=== PATIENT | female | born 1995 | race Caucasian/White ===

== ENCOUNTER → 2021-10-30 07:46 | Outpatient (CLI) | payer MEDICAID, SELFPAY ==
[2021-10-30 08:05] LABS: Basophils % 0.2 % (0.1-2.0); Eosinophils # 0.1 K/mm3 (0.0-0.4); Eosinophils % 0.7 % (0.1-12.0); Hemoglobin 12.2 g/dL (12.2-16.2); Lymphocytes # 1.3 K/mm3 (0.7-4.5); Mean Corpuscular Hemoglobin 29.3 pg (27.0-31.2); Mean Corpuscular Volume 86.1 fl (81-99); Monocytes # 0.3 K/mm3 (0.1-1.0); Monocytes % 3.3 % (1.7-9.3); Neutrophils # 7.1 K/mm3 (1.8-7.8); Neutrophils % 80.9 % (37.0-80.0); Platelet Count 216 K/mm3 (142-424); Red Blood Count 4.18 M/mm3 (4.20-5.40); Red Cell Distribution Width 13.2 % (11.5-17.5); White Blood Count 8.7 K/mm3 (4.8-10.8)
[2021-10-30 08:28] LABS: Glucose,Fasting 89 mg/dl (74-100)
[2021-10-30 10:10] LABS: Glucose 1 Hour 83 mg/dL (74-100)
== END ==
PROVIDERS: PCP Emergency Medicine; Visit Provider Obstetrics & Gynecology
DX: Z34.90 Encounter for supervision of normal pregnancy, unspecified, unspecified trimester (principal)
CPT/HCPCS: 36415; 82951; 85025

== ENCOUNTER → 2021-12-16 13:13 | Outpatient (CLI) | payer MEDICAID, SELFPAY ==
--- NOTE | 2021-12-16 13:14 | US_ITS ---
FINAL REPORT CLINICAL HISTORY: growth and David; obesity; patient transferred care, no prior ultrasound at this facility FINDINGS: There is a single live intrauterine gestation. Presentation is cephalic. Placenta is posterior, grade 2. The cervix is measures 4.6 cm which is normal. movement is seen. Heart rate is 142 beats per minute. AMNIOTIC FLUID: Appropriate amount. DAVID: 15.7 cm which is normal. MEASUREMENTS: ULTRASOUND AGE: 35 weeks 1 days. GESTATION AGE: 34 weeks 6 days. ESTIMATED WEIGHT: 2565 g GROWTH PERCENTILE: 50% BPD: 8.7 cm corresponding with 35 weeks 1 day. OFD: 11 cm corresponding with 35 weeks 3 days. HC: 31.1 cm corresponding with 34 weeks 6 days. AC: 31.1 cm corresponding with 35 weeks 1 days. FL: 6.8 cm corresponding with 35 weeks 1 days. HC/AC: 1.00 CI: 79% FL/BPD: 79% FL/AC: 22% IMPRESSION: Single living IUP with an ultrasound age of 35 weeks 1 days. DAVID of 15.7 cm Reviewed, Interpreted and Dictated by Luis Manuel Fischer III, MD Transcribed by Shante Pena Authenticated by Luis Manuel Fischer III, MD on 12/16/2021 03:07:18 PM [facility]
== END ==
PROVIDERS: PCP Emergency Medicine; Visit Provider Obstetrics & Gynecology
DX: O36.60X0 Maternal care for excessive fetal growth, unspecified trimester, not applicable or unspecified (principal); Z34.90 Encounter for supervision of normal pregnancy, unspecified, unspecified trimester
CPT/HCPCS: 76816

== ENCOUNTER 2022-01-10 09:49 | Inpatient (IN) | payer MEDICAID, SELFPAY ==
--- NOTE | 2022-01-10 09:24 | HMH.HP ---
*Admission Date: 01/10/22 *Chief complaint: contractions *History of present illness: 26 yo @ 38 10/21 GURPREET 01/22/22, dating by LMP = 11 week ultrasound Late transfer to [facility] at 28 weeks from [facility] has been uncomplicated with appropriate care Contractions began this am around 1:30 No leakage of fluid or vaginal bleeding Normal movement Cervix 7cm dilated on initial exam and she was admitted for active labor status reassuring on NST [facility] History I have reviewed the patient's past medical history: Yes *Have you ever received a pneumonia vaccine?: No *Have you received a flu vaccine this season?: Yes Other Surgeries: Yes: No Previous Surgery, Other. No: Amputation: No Fractures: No - *Social History Smoking Status: Never smoker Alcohol Intake: current Alcohol Intake Frequency:: holidays/special occasions only Substance Use Type: denies use *Occupational Status:: employed Housing: house Household Members: family *Travel in the last 8 weeks: None Family Hx:: No significant family history Para: 3 Review of Systems - Review of Systems Review of systems:: pertinent systems reviewed and negative unless documented below - *Genitourinary Reports other (+ contractions), Denies abnormal vaginal bleeding Meds Home Medications Medication Instructions Recorded Confirmed Type vit no.95-ferrous 1 tab PO DAILY 10/29/21 01/10/22 History fumarate 28 mg-folic acid 800 mcg tablet Omeprazole 20 mg PO DAILY 01/10/22 01/10/22 History Allergies Allergy/AdvReac Type Severity Reaction Status Date / Time No Known Allergies Allergy Verified 01/07/22 08:42 Exam Vital signs and Labs for Last 24 Hours: Laboratory Results - last 24 hr 01/10/22 09:44: SARS-CoV-2 (PCR) Not detected, Influenza A Untype (PCR) Not detected, Influenza Type B (PCR) Not detected 01/10/22 09:45: Urine Color Yellow, Urine Appearance Sl cloudy, Urine pH 7.0, Ur Specific [place] 1.015, Urine Protein Negative, Urine Glucose (UA) Negative, Urine Ketones Negative, Urine Blood Negative, Urine Nitrate Negative, Urine Bilirubin Negative, Urine Urobilinogen 0.2, Ur Leukocyte Esterase 3+ A, Urine WBC 20-50, Ur Squamous Epith Cells 10-20, Urine Bacteria 2+, Urine Mucus 1+ 01/10/22 09:45: Urine Opiates Screen Negative, Urine Methadone Screen Negative, Ur Barbituates Screen Negative, Ur Phencyclidine Scrn Negative, Ur Amphetamines Screen Negative, U Benzodiazepines Scrn Negative, Urine Cocaine Screen Negative, U Marijuana (THC) Screen Negative 01/10/22 09:50: Blood Type A Positive, Antibody Screen Negative 01/10/22 09:50: WBC 10.3, RBC 4.60, Hgb 13.1, Hct 38.8, MCV 84.3, MCH 28.4, MCHC 33.7, RDW 14.5, Plt Count 241, MPV 9.2, Neut % (Auto) 78.6, Lymph % (Auto) 15.9, [place] % (Auto) 3.7, Eos % (Auto) 1.2, Baso % (Auto) 0.7, Neut # (Auto) 8.1 H, Lymph # (Auto) 1.6, [place] # (Auto) 0.4, Eos # (Auto) 0.1, Baso # (Auto) 0.1 I & O for Last 24 hours: Intake & Output 01/08/22 01/09/22 01/10/22 01/11/22 11:59 11:59 11:59 11:59 Weight 263 lb - Constitutional no acute distress - *Routine HEENT Exam Head: Present: normocephalic Eye: Absent: conjunctival icterus ENT: Present: mucous membranes moist - *Routine Neck Exam Present: supple. Absent: lymphadenopathy - *Routine Respiratory Exam Present: CTA bilaterally - *Routine Cardiovascular Exam Present: RRR - *Routine Abdominal Exam Present: soft, normoactive bowel sounds. Absent: tenderness - *Routine Rectal Exam Rectal:: deferred - *Routine Genitalia Exam Genitalia:: normal female Comment:: Cervix /-1 AROM clear fluid; IUPC and FSE placed without difficulty or complication - *Routine Extremities Exam Absent: cyanosis, clubbing, edema - *Routine Skin Exam Present: warm. Absent: rash - *Routine Neurological Exam Present: alert, oriented X3 Assessment and Plan (1) 38 weeks gestation of Status: Acute Category: Medica
[2022-01-10 09:41] VITALS: BMI 46.5
[2022-01-10 09:51] VITALS: BMI 46.5
[2022-01-10 10:28] LABS: Microscopic, Urine URINE MICROSCOPIC (MICROSCOPIC)
[2022-01-10 10:28] LABS: Basophils # 0.1 K/mm3 (0-0.2); Basophils % 0.7 % (0.1-2.0); Eosinophils # 0.1 K/mm3 (0.0-0.4); Eosinophils % 1.2 % (0.1-12.0); Hematocrit 38.8 % (37.0-47.0); Hemoglobin 13.1 g/dL (12.2-16.2); Lymphocytes # 1.6 K/mm3 (0.7-4.5); Lymphocytes % 15.9 % (10-50); Mean Corpuscular HGB Conc 33.7 g/dL (31.8-35.4); Mean Corpuscular Hemoglobin 28.4 pg (27.0-31.2); Mean Corpuscular Volume 84.3 fl (81-99); Mean Platelet Volume 9.2 fl (7.4-10.4); Monocytes # 0.4 K/mm3 (0.1-1.0); Monocytes % 3.7 % (1.7-9.3); Neutrophils # 8.1 K/mm3 (1.8-7.8); Neutrophils % 78.6 % (37.0-80.0); Platelet Count 241 K/mm3 (142-424); Red Cell Distribution Width 14.5 % (11.5-17.5); White Blood Count 10.3 K/mm3 (4.8-10.8)
[2022-01-10 10:28] LABS: Coronavirus 19, PCR Not Detected (NotDetected); Influenza A, PCR Not Detected (NotDetected); Influenza B, PCR Not Detected (NotDetected)
[2022-01-10 10:31] LABS: Appearance,Urine SL CLOUDY (Clear); Bilirubin,Urine Negative (Negative); Blood, Urine Negative (Negative); Color,Urine YELLOW (Yellow); Glucose,Urine (UA) Negative (Negative); Ketones,Urine Negative (Negative); Leukocyte Esterase,Urine 3+ (Negative); Nitrate,Urine Negative (Negative); Protein,Urine Negative (Negative); Specific Gravity, Urine 1.015 (1.005-1.030); Urobilinogen,Urine 0.2 EU/dl (0.2)
[2022-01-10 10:42] LABS: Bacteria,Urine 2+ /lpf; WBC,Urine 20-50 #/hpf (0-3)
[2022-01-10 10:43] LABS: Mucus,Urine 1+ /lpf
[2022-01-10 10:45] LABS: Barbiturates Screen,Urine Negative ng/ml (<200)
[2022-01-10 10:46] LABS: Benzodiazepines Screen,Urine Negative ng/ml (<200)
[2022-01-10 10:47] LABS: Amphetamine/Metha Screen,Urine Negative ng/ml (<1000); Methadone Screen,Urine Negative ng/ml (<300)
[2022-01-10 10:48] LABS: Cannabinoid Screen,Urine Negative ng/ml (<50)
[2022-01-10 10:49] LABS: Cocaine Screen,Urine Negative ng/ml (<300); Opiate Screen,Urine Negative ng/ml (<300)
[2022-01-10 10:50] LABS: Phencyclidine Screen,Urine Negative ng/ml (<25)
--- NOTE | 2022-01-10 14:43 | HMH.DN ---
- Delivery Note Delivery Date:: 01/10/22 Delivery Time:: 11:25 Anesthesia Type: None Was labor medically induced?: No Gestational age (weeks): 38 delivered prior to 39 weeks?: Yes Justification for early elective delivery:: Active Labor Infant Gender: Female at 1 minute: 7 at 5 minutes: 9 Delivery Procedure:: Spontaneous vaginal delivery of vigorous live born female infant over intact perineum. Delivery uncomplicated Nuchal cord x 1 reduced on perineum No shoulder dystocia with delivery Infant placed on maternal abdomen after delivery, with standard nursing assessment performed Infant Apgars: 7 & 9 Placenta spontaneously expressed and examined; noted to be complete/intact. Vulva, vagina, and cervix inspected; no lacerations present EBL: 300 cc All sponge/needle/instrument counts correct at conclusion of procedure Mother and stable to recovery
[2022-01-11 08:07] LABS: Hemoglobin 11.3 g/dL (12.2-16.2)
--- NOTE | 2022-01-11 08:25 | HMH.PROBDL ---
Delivery date: 01/10/22 Events: Labor Augmentation Induction method: AROM Anesthesia type: None
--- NOTE | 2022-01-11 08:28 | P.PN_ITS ---
Internal Medicine - PN: Subj *Date: 01/11/22 *Time: 08:28 Interval history: PPD # 1 Patient resting comfortably in bed. She is bottle feeding. No complaints or concerns. Light lochia. Voiding without difficulty. + Flatus and + BM. Denies chest pain, shortness of breath, fever/chills, headaches and vision changes. No lower extremity swelling. Exam Vital signs and Labs for Last 24 Hours: Laboratory Results - last 24 hr 01/10/22 09:44: SARS-CoV-2 (PCR) Not detected, Influenza A Untype (PCR) Not detected, Influenza Type B (PCR) Not detected 01/10/22 09:45: Urine Color Yellow, Urine Appearance Sl cloudy, Urine pH 7.0, Ur Specific [place] 1.015, Urine Protein Negative, Urine Glucose (UA) Negative, Urine Ketones Negative, Urine Blood Negative, Urine Nitrate Negative, Urine Bilirubin Negative, Urine Urobilinogen 0.2, Ur Leukocyte Esterase 3+ A, Urine WBC 20-50, Ur Squamous Epith Cells 10-20, Urine Bacteria 2+, Urine Mucus 1+ 01/10/22 09:45: Urine Opiates Screen Negative, Urine Methadone Screen Negative, Ur Barbituates Screen Negative, Ur Phencyclidine Scrn Negative, Ur Amphetamines Screen Negative, U Benzodiazepines Scrn Negative, Urine Cocaine Screen Negative, U Marijuana (THC) Screen Negative 01/10/22 09:50: Blood Type A Positive, Antibody Screen Negative 01/10/22 09:50: WBC 10.3, RBC 4.60, Hgb 13.1, Hct 38.8, MCV 84.3, MCH 28.4, MCHC 33.7, RDW 14.5, Plt Count 241, MPV 9.2, Neut % (Auto) 78.6, Lymph % (Auto) 15.9, [place] % (Auto) 3.7, Eos % (Auto) 1.2, Baso % (Auto) 0.7, Neut # (Auto) 8.1 H, Lymph # (Auto) 1.6, [place] # (Auto) 0.4, Eos # (Auto) 0.1, Baso # (Auto) 0.1 01/11/22 06:48: Hgb 11.3 L D, Hct 34.0 L 01/11/22 - BP 117/56, HR 76, R 18, O2 sat 98 %, T 98.0 I & O for Last 24 hours: Intake & Output 01/08/22 01/09/22 01/10/22 01/11/22 23:59 23:59 23:59 23:59 Weight 263 lb - Constitutional no acute distress - *Routine HEENT Exam Head: Present: normocephalic Eye: Present: EOMI ENT: Present: mucous membranes moist - *Routine Respiratory Exam Present: CTA bilaterally - *Routine Cardiovascular Exam Present: RRR - *Routine Abdominal Exam Present: soft, normoactive bowel sounds. Absent: tenderness Comments: Fundus firm and below umbilicus - *Routine Extremities Exam Present: full ROM. Absent: cyanosis, clubbing, edema Assessment and Plan (1) 38 weeks gestation of Status: Acute Category: Medical Code(s): Z3A.38 - 38 weeks gestation of (2) Active labor at term Status: Acute Category: Medical (3) anemia Problem details: Acute blood loss, asymptomatic 01/11/22 - Hgb 11.3, Hct 34.0 (01/10/22 - Hgb 13.1, Hct 38.8) Status: Acute Category: Medical Code(s): O90.81 - Anemia of the puerperium (4) History of depression Status: Acute Category: Medical Code(s): Z87.59 - Personal history of other complications of , childbirth and the puerperium; Z86.59 - Personal history of other mental and behavioral disorders - Assessment and plan all Dx Assessment and Plan for all problems:: Continue routine care Encouraged increased ambulation Plan d/c home today Discussed discharge instructions Follow-up with Dr. Ramirez in 6 weeks or sooner if needed
--- NOTE | 2022-01-11 08:28 | HMH.PHAINT ---
MEDICATION RECONCILIATION COMPLETED ON PATIENT USING EXTERNAL FILL HISTORY FROM PHARMACY. -JAYCE SANTIAGO, JOHND
--- NOTE | 2022-01-11 09:23 | HMH.OBDCSM ---
General - General Admission date:: 01/10/22 Discharge date: 01/11/22 HPI - History of Present Illness History of present illness: Ms Mikaela Xiao is a 26 yo at 38 2/7 weeks, by 11 week ultrasound, who presented to [facility] with complaint of regular, painful contractions. On admission cervix was 7 cm dilated. Hospital Course Hospital Course: Patient was admitted for active labor. She had a spontaneous vaginal delivery with no lacerations. PPD # 1 she was feeling well. Bottle feeding. Light lochia. Voiding without difficulty. Passing flatus. She had a BM. She denies headaches, dizziness, chest pain, shortness of breath, fever and chills. Vital signs were stable. Uterine fundus was firm and below umbilicus. Heart was regular rate and rhythm. Lungs were clear to auscultation. No lower extremity swelling and no calf tenderness. Normal hospital course. Rhogam Administration: Not Indicated Objective Vital signs: BP 117/56 HR 76 R 18 T 98.0 O2 sat 98% no acute distress - *Routine HEENT Exam Head: Present: normocephalic Eye: Absent: conjunctivae pink ENT: Present: mucous membranes moist - *Routine Respiratory Exam Present: CTA bilaterally - *Routine Cardiovascular Exam Present: RRR - *Routine Abdominal Exam Present: soft, normoactive bowel sounds. Absent: tenderness, distended Comments: Uterine fundus firm and below umbilicus - *Routine Extremities Exam Absent: cyanosis, edema, calf tenderness - *Routine Neurological Exam Present: alert, oriented X3 Results Labs on day of discharge: Labs from last 24 hours 01/11/22 01/10/22 01/10/22 06:48 09:50 09:50 WBC 10.3 RBC 4.60 Hgb 11.3 L D 13.1 Hct 34.0 L 38.8 MCV 84.3 MCH 28.4 MCHC 33.7 RDW 14.5 Plt Count 241 MPV 9.2 Neut % (Auto) 78.6 Lymph % (Auto) 15.9 [place] % (Auto) 3.7 Eos % (Auto) 1.2 Baso % (Auto) 0.7 Neut # (Auto) 8.1 H Lymph # (Auto) 1.6 [place] # (Auto) 0.4 Eos # (Auto) 0.1 Baso # (Auto) 0.1 Urine Color Urine Appearance Urine pH Ur Specific [place] Urine Protein Urine Glucose (UA) Urine Ketones Urine Blood Urine Nitrate Urine Bilirubin Urine Urobilinogen Ur Leukocyte Esterase Urine WBC Ur Squamous Epith Cells Urine Bacteria Urine Mucus Urine Opiates Screen Urine Methadone Screen Ur Barbituates Screen Ur Phencyclidine Scrn Ur Amphetamines Screen U Benzodiazepines Scrn Urine Cocaine Screen U Marijuana (THC) Screen SARS-CoV-2 (PCR) Influenza A Untype (PCR) Influenza Type B (PCR) Blood Type A Positive Antibody Screen Negative 01/10/22 01/10/22 01/10/22 09:45 09:45 09:44 WBC RBC Hgb Hct MCV MCH MCHC RDW Plt Count MPV Neut % (Auto) Lymph % (Auto) [place] % (Auto) Eos % (Auto) Baso % (Auto) Neut # (Auto) Lymph # (Auto) [place] # (Auto) Eos # (Auto) Baso # (Auto) Urine Color Yellow Urine Appearance Sl cloudy Urine pH 7.0 Ur Specific [place] 1.015 Urine Protein Negative Urine Glucose (UA) Negative Urine Ketones Negative Urine Blood Negative Urine Nitrate Negative Urine Bilirubin Negative Urine Urobilinogen 0.2 Ur Leukocyte Esterase 3+ A Urine WBC 20-50 Ur Squamous Epith Cells 10-20 Urine Bacteria 2+ Urine Mucus 1+ Urine Opiates Screen Negative Urine Methadone Screen Negative Ur Barbituates Screen Negative Ur Phencyclidine Scrn Negative Ur Amphetamines Screen Negative U Benzodiazepines Scrn Negative Urine Cocaine Screen Negative U Marijuana (THC) Screen Negative SARS-CoV-2 (PCR) Not detected Influenza A Untype (PCR) Not detected Influenza Type B (PCR) Not detected Blood Type Antibody Screen DS: Diagnosis - Discharge Diagnosis (1) 38 weeks gestation of Status: Acute (2) Active
== END 2022-01-11 16:44 | disposition home or self-care (01) | DRG 807 ==
LOC: OBOUT 09:49 → OB 09:49
PROVIDERS: Admitting Provider Obstetrics & Gynecology; PCP Family Medicine; Visit Provider Obstetrics & Gynecology
DX: O69.81X0 Labor and delivery complicated by cord around neck, without compression, not applicable or unspecified (principal); Z37.0 Single live birth; Z3A.38 38 weeks gestation of pregnancy; O90.81 Anemia of the puerperium; D64.9 Anemia, unspecified
CPT/HCPCS: 59409; 36415; 59025; 80305; 81001; 85014; 85018; 85025; 86850; 87086; 87088; 87186; C9803; J0595; U0003; U0005

== ENCOUNTER → 2022-01-10 16:41 | Outpatient (CLI) | payer MEDICAID, SELFPAY | PROVIDERS: PCP Obstetrics & Gynecology; Visit Provider Obstetrics & Gynecology | DX: Z34.90 Encounter for supervision of normal pregnancy, unspecified, unspecified trimester (principal) | CPT/HCPCS: 86403 ==

== ENCOUNTER → 2022-02-25 09:20 | Outpatient (CLI) | payer MEDICAID, SELFPAY ==
[2022-02-25 09:51] LABS: Basophils % 0.6 % (0.1-2.0); Eosinophils # 0.1 K/mm3 (0.0-0.4); Eosinophils % 1.6 % (0.1-12.0); Hematocrit 40.4 % (37.0-47.0); Hemoglobin 13.7 g/dL (12.2-16.2); Lymphocytes # 1.1 K/mm3 (0.7-4.5); Lymphocytes % 30.4 % (10-50); Mean Corpuscular Hemoglobin 28.6 pg (27.0-31.2); Mean Corpuscular Volume 84.1 fl (81-99); Mean Platelet Volume 9.6 fl (7.4-10.4); Monocytes # 0.2 K/mm3 (0.1-1.0); Monocytes % 5.7 % (1.7-9.3); Neutrophils # 2.2 K/mm3 (1.8-7.8); Neutrophils % 61.8 % (37.0-80.0); Platelet Count 221 K/mm3 (142-424); Red Cell Distribution Width 14.3 % (11.5-17.5); White Blood Count 3.6 K/mm3 (4.8-10.8)
[2022-02-25 10:08] LABS: Chloride 107 mmol/L (98-107); Potassium 4.1 mmoL/L (3.5-5.1); Sodium 139 mmol/L (136-145)
[2022-02-25 10:10] LABS: Blood Urea Nitrogen 13 mg/dl (7-17)
[2022-02-25 10:11] LABS: Alanine Aminotransferase 22 U/L (12-78); Albumin Level 4.2 g/dl (3.5-5.0); Albumin/Globulin Ratio 1.7 (1.1-1.8); Alkaline Phosphatase 81 U/L (38-126); Anion Gap 11.1 mEq/L (5-15); Aspartate Amino Transferase 27 U/L (14-36); Bilirubin,Total 0.6 mg/dl (0.2-1.3); Calcium 9.2 mg/dl (8.4-10.2); Carbon Dioxide 25 mmol/L (22.0-30.0); Estimated Glomerular Filt Rate 101 ml/min (>60); GFR (African American) 122 ML/MIN (>60); Globulin 2.5 g/dL (1.3-3.2); Glucose 94 mg/dl (74-100); Total Protein,Serum 6.7 g/dl (6.3-8.2)
[2022-02-25 10:22] LABS: Barbiturates Screen,Urine Negative ng/ml (<200); Benzodiazepines Screen,Urine Negative ng/ml (<200)
[2022-02-25 10:23] LABS: Amphetamine/Metha Screen,Urine Negative ng/ml (<1000)
[2022-02-25 10:24] LABS: Cannabinoid Screen,Urine Negative ng/ml (<50); Cocaine Screen,Urine Negative ng/ml (<300)
[2022-02-25 10:25] LABS: Methadone Screen,Urine Negative ng/ml (<300)
[2022-02-25 10:26] LABS: Opiate Screen,Urine Negative ng/ml (<300)
[2022-02-25 10:27] LABS: Phencyclidine Screen,Urine Negative ng/ml (<25)
[2022-02-25 10:28] LABS: HCG,Quantitative < 2 mIU/ml (0-5.42)
== END ==
PROVIDERS: PCP Nurse Practitioner Family; Visit Provider Obstetrics & Gynecology
DX: U07.1 COVID-19 (principal); Z30.2 Encounter for sterilization
CPT/HCPCS: 36415; 80053; 80305; 84702; 85025; C9803; U0003; U0005

== ENCOUNTER → 2022-05-02 08:55 | Outpatient (CLI) | payer MEDICAID, SELFPAY ==
[2022-05-02 10:05] LABS: Basophils # 0.1 K/mm3 (0-0.2); Basophils % 1.4 % (0.1-2.0); Eosinophils # 0.1 K/mm3 (0.0-0.4); Eosinophils % 1.6 % (0.1-12.0); Hematocrit 43.5 % (37.0-47.0); Hemoglobin 13.4 g/dL (12.2-16.2); Lymphocytes # 1.1 K/mm3 (0.7-4.5); Lymphocytes % 24.7 % (10-50); Mean Corpuscular HGB Conc 30.8 g/dL (31.8-35.4); Mean Corpuscular Hemoglobin 27.7 pg (27.0-31.2); Mean Corpuscular Volume 89.8 fl (81-99); Mean Platelet Volume 9.3 fl (7.4-10.4); Monocytes # 0.3 K/mm3 (0.1-1.0); Monocytes % 5.8 % (1.7-9.3); Neutrophils # 2.9 K/mm3 (1.8-7.8); Neutrophils % 66.5 % (37.0-80.0); Platelet Count 231 K/mm3 (142-424); Red Blood Count 4.85 M/mm3 (4.20-5.40); Red Cell Distribution Width 14.5 % (11.5-17.5); White Blood Count 4.3 K/mm3 (4.8-10.8)
[2022-05-02 10:09] LABS: Chloride 105 mmol/L (98-107); Potassium 4.9 mmoL/L (3.5-5.1); Sodium 138 mmol/L (136-145)
[2022-05-02 10:12] LABS: Alanine Aminotransferase 16 U/L (12-78); Albumin Level 4.6 g/dl (3.5-5.0); Albumin/Globulin Ratio 1.8 (1.1-1.8); Alkaline Phosphatase 78 U/L (38-126); Anion Gap 13.9 mEq/L (5-15); Aspartate Amino Transferase 25 U/L (14-36); Bilirubin,Total 0.9 mg/dl (0.2-1.3); Blood Urea Nitrogen 11 mg/dl (7-17); Carbon Dioxide 24 mmol/L (22.0-30.0); Estimated Glomerular Filt Rate 121 ml/min (>60); GFR (African American) 146 ML/MIN (>60); Globulin 2.6 g/dL (1.3-3.2); Total Protein,Serum 7.2 g/dl (6.3-8.2)
[2022-05-02 10:13] LABS: Calcium 9.7 mg/dl (8.4-10.2); Glucose 86 mg/dl (74-100)
[2022-05-02 11:02] LABS: HCG,Quantitative < 2 mIU/ml (0-5.42)
== END ==
PROVIDERS: PCP Nurse Practitioner Family; Visit Provider Obstetrics & Gynecology
DX: N92.0 Excessive and frequent menstruation with regular cycle; Z30.09 Encounter for other general counseling and advice on contraception; Z01.812 Encounter for preprocedural laboratory examination; Z20.822 Contact with and (suspected) exposure to COVID-19
CPT/HCPCS: 36415; 80053; 84702; 85025; C9803; U0003; U0005

== ENCOUNTER 2022-05-05 06:07 | Day surgery (SDC) | payer MEDICAID, SELFPAY ==
[2022-02-25 13:04] VITALS: BMI 33.9
[2022-05-02 08:17] VITALS: BMI 33.9
[2022-05-05] VITALS (19 sets, daily range): BP systolic 93–138; BP diastolic 38–88; PULSE 41–78; RESP 12–22; TEMP 36.1–43; O2SAT 97–100
--- NOTE | 2022-05-05 07:09 | P.PN_ITS ---
[facility] Anesthesia Checklist - Patient Identification Patient Identification: Arm Band - Structural Data Admitted From: Home Planned Operative Procedure/s: BTL Consent for Planned Operative Procedure(s) Verified: Yes - NPO Status Verified Time NPO: 00:00 - Additional verifications Anesthesia Reactions: No Hx Blood Transfusions: No Blood Transfusion Reaction: No - Airway Assessment C-Spine Mobility Assessed: Yes TMJ Mobility Assessed: Yes Dentition: Good Dentition - Neurological Assessment Level of Consciousness: Awake Hx Seizures: No Numbness or tingling in extremities: No - Anesthesia Plan Anesthesia Risk discussed: Yes Anesthesia Plan: Verified ASA Class: I Anesthesia Type: General [facility] History I have reviewed the patient's past medical history: Yes Medical History: Denies:: Cancer, Diabetes Mellitus Type 1, Diabetes Mellitus Type 2, Internal Pacemaker, MRSA, Seizures *Have you ever received a pneumonia vaccine?: No *Have you received a flu vaccine this season?: No Other Medical History: Denies: Blood Transfusion Reaction Anesthesia experience/problems:: None Other Surgeries: Yes: No Previous Surgery, Other. No: , Pacemaker Amputation: No Fractures: No - *Social History Last grade of school completed: Advanced degree Smoking Status: Never smoker Alcohol Intake: never Alcohol Intake Frequency:: holidays/special occasions only Substance Use Type: denies use *Occupational Status:: unemployed Housing: house Household Members: significant other *Travel in the last 8 weeks: None Family Hx:: No significant family history
--- NOTE | 2022-05-05 08:33 | HMH.ANESI ---
[facility] Anesthesia Record Part I Intake, IV Amount: 800 Estimated blood loss (mL): 5 Urine output (mL): 0 Blood Pressure: 138/38 SaO2: 97 Pulse Rate: 75 Respiratory Rate: 22 Temperature: 98.3 F Patient is:: Drowsy, Oral/Nasal airway Stable to PACU at:: 08:32
--- NOTE | 2022-05-05 08:48 | P.OP_ITS ---
Date of procedure: 05/05/22 Pre-op Diagnosis:: Undesired fertility Post-op Diagnosis:: Same Procedure performed:: Laparoscopic bilateral tubal ligation Surgeon:: Lianne Ramirez MD [employer] ENGINEER:: Shahana Kim Anesthesia: GETA Estimated blood loss (mL): 5 Operative findings:: Normal appearing uterus, ovaries and fallopian tubes Operative note:: The patient was taken to the operating room and general anesthesia was administered. She was prepped/draped in lithotomy position. A uterine manipulator was placed without difficulty. Gloves were changed and attention was turned to the abdomen. 5cc lidocaine with epi was injected into the umbilical region and the suprapubic region in subcutaneous fashion. A 5mm skin incision was made in the umbilical fold and the Verees needle was inserted through the peritoneum and into the abdominal cavity in standard fashion. The abdomen was insufflated with CO2 gas. A 5mm non-bladed trocar was inserted directly into the abdominal cavity and appropriate placement was confirmed with the laparoscope. No intra-abdominal injuries occurred during entry into the abdominal cavity, as confirmed visually with the laparoscope. The patient was placed in trendelenburg and a 8mm skin incision was made 2cm above the pubic symphysis. A 8mm non-bladed trocar was inserted under direct visualization, without complication. The uterus was elevated out of the pelvis in order to better visualize the anatomy. A survey of the pelvis and abdomen revealed the findings noted above. The uterus was angled towards the patient right and the left fallopian tube was grasped and a Filshie clip was placed over the tube. The clip was noted to completely occlude the tube. The uterus was then angled towards the patient left, and the right fallopian tube was grasped and a Filshie clip was placed over the tube. The clip was noted to completely occlude the tube. The uterine manipulator was removed. The abdomen was then evacuated of gas and all trocars removed. The skin incisions were closed with 4-0 monocryl and Dermabond. The patient tolerated the procedure well. Sponge/lap/needle/inst rument counts were correct at conclusion of procedure. She was taken out of lithotomy position and awakened from anesthesia, and was taken to the recovery room in stable condition. Condition: stable Disposition: PACU Specimens:: None Complications:: None
--- NOTE | 2022-05-05 09:12 | SUR.PHASEI ---
0906 called and gave detailed report to Martha Putnam RN 09 transported via stretcher to post op. vital signs stable. rates pain at a 2. left in stable condition with Martha Putnam RN at bedside.
--- NOTE | 2022-05-05 09:30 | HMH.ANESII ---
[facility] Anesthesia Record Part II Discharge Time: 09:09 Destination: Surgical Day Care (OP Surgery) PACU nurse assessment reviewed?: Yes Patient Condition:: Good Anesthesia Complications:: None Swallowing reflex intact?: Yes Cyanosis?: No Blood Pressure: 104/60 Pulse Rate: 54 Temperature: 98.3 F Mental Status: Alert & Oriented Pain level:: 2 Nausea and/or vomitting:: None Intake, IV Amount: 0
--- NOTE | 2022-05-05 09:40 | SUR.PHASEII ---
LR opened, Rina Kim CRNA at bedside, ordered EKG. Respiratory notified and on the way. Pt still says she feels weird.
--- NOTE | 2022-05-05 09:48 | ECG_ITS ---
APPROVED REPORT Exam: Resting ECG HR:42 bpm ECG Measurements Heart Rate 42 AXES [place] 139 P 31 QRSd 82 QRS 62 QT 512 T 44 QTc 455 Conclusion SINUS BRADYCARDIA BORDERLINE ECG UNCONFIRMED REPORT Electronically signed by : Ace Olsen MD 05/06/2022 21:27:25
--- NOTE | 2022-05-05 09:58 | SUR.PHASEII ---
FSBS:107
--- NOTE | 2022-05-05 10:20 | SUR.PHASEII ---
connected pt to heart monitor. Sinus herrera noted, with HR 54, BP 111/61. Still waiting on Cardiology.
[2022-05-05 10:50] LABS: Basophils % 0.3 % (0.1-2.0); Eosinophils # 0.1 K/mm3 (0.0-0.4); Eosinophils % 1.6 % (0.1-12.0); Lymphocytes # 0.4 K/mm3 (0.7-4.5); Lymphocytes % 5.6 % (10-50); Mean Corpuscular HGB Conc 31.6 g/dL (31.8-35.4); Mean Corpuscular Hemoglobin 29.1 pg (27.0-31.2); Mean Corpuscular Volume 92.1 fl (81-99); Mean Platelet Volume 9.5 fl (7.4-10.4); Monocytes # 0.1 K/mm3 (0.1-1.0); Monocytes % 1.3 % (1.7-9.3); Neutrophils # 7.2 K/mm3 (1.8-7.8); Neutrophils % 91.3 % (37.0-80.0); Platelet Count 206 K/mm3 (142-424); Red Blood Count 4.46 M/mm3 (4.20-5.40); Red Cell Distribution Width 14.8 % (11.5-17.5); White Blood Count 7.8 K/mm3 (4.8-10.8)
[2022-05-05 10:52] LABS: MANUAL DIFFERENTIAL MANUAL DIFFERENTIAL (MANUAL DIFF)
[2022-05-05 11:02] LABS: Alanine Aminotransferase 20 U/L (12-78); Alkaline Phosphatase 76 U/L (38-126); Anion Gap 11.5 mEq/L (5-15); Aspartate Amino Transferase 24 U/L (14-36); Blood Urea Nitrogen 14 mg/dl (7-17); Calcium 8.6 mg/dl (8.4-10.2); Carbon Dioxide 23 mmol/L (22.0-30.0); Chloride 108 mmol/L (98-107); Creatinine Clearance Estimated 194 mL/min (50-200); Estimated Glomerular Filt Rate 101 ml/min (>60); GFR (African American) 122 ML/MIN (>60); Glucose 108 mg/dl (74-100); Potassium 4.5 mmoL/L (3.5-5.1); Sodium 138 mmol/L (136-145); Total Protein,Serum 6.7 g/dl (6.3-8.2)
[2022-05-05 11:08] LABS: Bilirubin,Total < 0.1 mg/dl (0.2-1.3)
[2022-05-05 11:11] LABS: Bilirubin,Indirect 0.1 mg/dL (0.0-0.9)
[2022-05-05 11:16] LABS: Troponin I < 0.01 ng/ml (0.00-0.034)
[2022-05-05 11:30] LABS: Eosinophils % 1 % (0-3); Lymphocytes % 6 % (10-50); Monocytes % 3 % (2-9); Neutrophils % 90 % (42-76); Platelet Estimate Normal; RBC Morphology Normal; Total Cells Counted 100
[2022-05-05 11:34] LABS: Thyroid Stimulating Hormone 1.88 uIU/mL (0.465-4.68)
[2022-05-05 11:55] LABS: POC Glucose,Bedside 107 (70-110)
--- NOTE | 2022-05-05 12:47 | SUR.PHASEII ---
1215-Dr Esparza is at BS w/ Lesley Kirkland, okayed patient to be dc'd
--- NOTE | 2022-05-05 13:21 | HMH.CNCARD ---
History of Present Illness Consult date: 05/05/22 Requesting physician: Shahana Kim Consult reason: chest pain Chief complaint: chest heaviness History of present illness: This is a 26-year-old white female who presented to the hospital for bilateral tubal ligation today. The patient underwent surgery and did well. Following surgery the patient had sinus bradycardia with some PVCs noted. She is complaining of chest heaviness. She states that it feels as if an elephant is sitting on her chest. There is no radiation of the pain. There are no associated symptoms. She states that she just feels weird and does not feel like her normal self. The patient did have a lot of sedation during her procedure which is most likely the cause of her bradycardia because of high vagal tone. She denies any fever, chills, nausea, vomiting, diarrhea, PND or orthopnea. She denies any shortness of breath or edema. [facility] History I have reviewed the patient's past medical history: Yes Medical History: Denies:: Cancer, Diabetes Mellitus Type 1, Diabetes Mellitus Type 2, Internal Pacemaker, MRSA, Seizures *Have you ever received a pneumonia vaccine?: No *Have you received a flu vaccine this season?: No Other Medical History: Denies: Blood Transfusion Reaction Anesthesia experience/problems:: None Other Surgeries: Yes: No Previous Surgery, Other. No: , Pacemaker Amputation: No Fractures: No - *Social History Last grade of school completed: Advanced degree Smoking Status: Never smoker Alcohol Intake: never Alcohol Intake Frequency:: holidays/special occasions only Substance Use Type: denies use *Occupational Status:: unemployed Housing: house Household Members: significant other *Travel in the last 8 weeks: None Family Hx:: No significant family history Meds Home Medications Medication Instructions Recorded Confirmed Type oxycodone 5 mg tablet 5 mg PO Q6H PRN #12 tab 05/05/22 Rx Allergies Allergy/AdvReac Type Severity Reaction Status Date / Time No Known Allergies Allergy Verified 05/02/22 08:28 Exam Vital signs and Labs for Last 24 Hours: Temp Pulse Resp BP Pulse Ox 97.3 F L 56 L 18 111/72 100 05/05/22 12:25 05/05/22 12:25 05/05/22 12:25 05/05/22 12:25 05/05/22 12:25 Laboratory Results - last 24 hr 05/05/22 09:58: POC Glucose 107 05/05/22 10:44: WBC 7.8, RBC 4.46, Hgb 13.0, Hct 41.0, MCV 92.1, MCH 29.1, MCHC 31.6 L, RDW 14.8, Plt Count 206, MPV 9.5, Neut % (Auto) 91.3 H, Lymph % (Auto) 5.6 L, [place] % (Auto) 1.3 L, Eos % (Auto) 1.6, Baso % (Auto) 0.3, Neut # (Auto) 7.2, Lymph # (Auto) 0.4 L, [place] # (Auto) 0.1, Eos # (Auto) 0.1, Baso # (Auto) 0.0, Total Counted 100, Neutrophils % (Manual) 90 H, Lymphocytes % (Manual) 6 L, Monocytes % (Manual) 3, Eosinophils % (Manual) 1, Platelet Estimate Normal, RBC Morphology Normal 05/05/22 10:44: Sodium 138, Potassium 4.5, Chloride 108 H, Carbon Dioxide 23, Anion Gap 11.5, BUN 14, Creatinine 0.70, Estimated Creat Clear 194, Estimated GFR 101, Est GFR ( Amer) 122, Glucose 108 H, Calcium 8.6, Total Bilirubin < 0.1 L, Direct Bilirubin 0.0, Conjugated Bilirubin 0.0, Indirect Bilirubin 0.1, Unconjugated Bilirubin 0.0, AST 24, ALT 20, Alkaline Phosphatase 76, Total Protein 6.7, Albumin 4.0, TSH 1.88 05/05/22 10:44: Free T4 1.50 05/05/22 10:44: Troponin I < 0.01 I & O for Last 24 hours: Intake & Output 05/02/22 05/03/22 05/04/22 05/05/22 23:59 23:59 23:59 23:59 Intake Total 1200 / 1200 Balance 1200 / 1200 Weight 223 lb Narrative: EKG is sinus bradycardia with a rate of 42 bpm. - Constitutional no acute distress, obese - *Routine HEENT Exam Head: Present: normocephalic, atraumatic Eye: Present: EOMI, PERRL ENT: Present: mucous membranes moist - *Routine Neck Exam Present: supple, full ROM, normal carotid upstroke. Absent: JVD, carotid bruit, lymphadenopathy - *Routine Respiratory Exam Present: CTA bilaterally - *Routine Cardiovascular Exam
== END 2022-05-05 12:25 | disposition home or self-care (01) ==
LOC: OR 06:08
PROVIDERS: Nurse Practitioner Family; PCP Nurse Practitioner Family; Visit Provider Obstetrics & Gynecology
PROC: 0UL74ZZ Occlusion of Bilateral Fallopian Tubes, Percutaneous Endoscopic Approach (ICD-10-PCS; CPT 58670; principal; 2022-05-05 07:30)
DX: Z30.2 Encounter for sterilization (principal)
CPT/HCPCS: 58671; 36415; 80048; 80076; 82962; 84439; 84443; 84484; 85007; 85025; 93005; 93306; 96374; J2405

== ENCOUNTER → 2022-05-13 14:09 | Outpatient (CLI) | payer MEDICAID, SELFPAY ==
[2022-05-13 15:23] LABS: Basophils # 0.1 K/mm3 (0-0.2); Basophils % 1.1 % (0.1-2.0); Eosinophils # 0.1 K/mm3 (0.0-0.4); Eosinophils % 1.8 % (0.1-12.0); Hematocrit 43.1 % (37.0-47.0); Hemoglobin 13.3 g/dL (12.2-16.2); Lymphocytes # 1.4 K/mm3 (0.7-4.5); Lymphocytes % 24.1 % (10-50); Mean Corpuscular HGB Conc 30.9 g/dL (31.8-35.4); Mean Corpuscular Hemoglobin 27.9 pg (27.0-31.2); Mean Corpuscular Volume 90.2 fl (81-99); Mean Platelet Volume 8.8 fl (7.4-10.4); Monocytes # 0.3 K/mm3 (0.1-1.0); Monocytes % 5.1 % (1.7-9.3); Neutrophils # 3.9 K/mm3 (1.8-7.8); Neutrophils % 67.9 % (37.0-80.0); Platelet Count 274 K/mm3 (142-424); Red Blood Count 4.78 M/mm3 (4.20-5.40); Red Cell Distribution Width 14.2 % (11.5-17.5); White Blood Count 5.7 K/mm3 (4.8-10.8)
== END ==
PROVIDERS: PCP Nurse Practitioner Family; Visit Provider Obstetrics & Gynecology
DX: N93.8 Other specified abnormal uterine and vaginal bleeding (principal)
CPT/HCPCS: 36415; 85025

== ENCOUNTER 2023-02-26 08:10 | Emergency (ER) | payer MEDICAID, SELFPAY ==
[2023-02-26 08:15] VITALS: BP 141/84; PULSE 81; RESP 20; TEMP 37; O2SAT 99; BMI 30.4
--- NOTE | 2023-02-26 08:28 | EXP.UTC ---
Discharge Plan Disposition Patient Disposition: Home, Self-Care Condition: Good Prescriptions Prescriptions: New azithromycin [Zithromax Z-Nathaniel] 250 mg tablet See Rx Instructions .ROUTE .COMPLEX 5 Days Qty: 6 0RF Rx Instructions: For 250 mg dose pack: take 500 mg today (day 1), then 250 mg for 4 days (days 2-5) methylprednisolone [Medrol (Nathaniel)] 4 mg tablets,dose pack See Rx Instructions .Route .COMPLEX 6 Days Qty: 21 0RF Rx Instructions: taper pack; guaifenesin [Mucinex] 600 mg tablet extended release 12hr 1,200 mg PO BID PRN (Reason: cough) Qty: 20 0RF Referrals Follow up/Referrals: Shashi Mendoza APRN [Primary Care Provider] - See instructions Activity Restrictions/Add. Instructions Additional Instructions/Restrictions: *Monitor Temp, Over the counter Motrin or Tylenol as directed/as needed Tylenol every 4 hours and Motrin every 6 hours (as long as your family doctor has told you that you can take it) for fever or pain. and straight to ER if unable to lower temp less than 101.0 after medication given *Warm salt water gargles may help to soothe the throat *Throat Lozenges? *Warm fluids like tea with honey may help to soothe the throat? *Sleep elevated *Humidifier/Vaporizer Take medication as prescribed Your throat swab was sent for culture. Those results are typically sent to your primary care. Be sure to follow up in 2-3 days with your family doctor/primary care physician if no improvement so they can review those result and treat if necessary. If you don?t have a primary care doctor, I recommend you get one but in the mean time, you will have to return to a walk in clinic Follow up IMMEDIATELY for new or worsening symptoms or no Noticeable improvement over the next 48-72 hours. 911 for difficulty breathing or swallowing Clinical Impressions Clinical Impression: URI (upper respiratory infection) Qualifiers: URI type: unspecified URI Qualified Code(s): J06.9 - Acute upper respiratory infection, unspecified Instructions Patient Instructions: Sore Throat, Acute Bronchitis, Cough Discharge ED Provider: Liseth Elias [facility] HPI General Stated complaint: Loss of voice, ear pain, sore throat Mode of Arrival: Ambulatory Source of Information: Patient Limitations: No Limitations Time Seen by Provider: 02/26/23 08:20 Description of Symptoms (Recalled from Triage Doc. by RN): PATIENT C/O SORE THROAT, NO VOICE, HARD TO GET A GOOD BREATH IN, BACK PAIN WITH BREATHING, AND RIGHT EAR PAIN X 6 DAYS HEENT Symptoms (Recalled from RN notes): Yes Resp Symptoms (Recalled from RN notes): Yes Skin Symptoms (Recalled from RN notes): No MS Symptoms (Recalled from RN notes): No Functional Status (Recalled from RN notes): WNL History of Present Illness Provider Complaint: Patient states that she has been having pain in her right ear, scratchy throat, drainage loss of voice, cough and at times states that she hurts in her upper back and feels like she cannot get a good breath at times States that she hasnt had any voice for several days and today she wasnt feeling any better so she came in to get checked Related Data Previous Rx's Medication Instructions Recorded azithromycin 250 mg tablet See Rx Instructions PO .COMPLEX 5 02/26/23 (Zithromax Z-Nathaniel) days #6 tabs guaifenesin 600 mg tablet, 1,200 mg PO BID PRN cough #20 tabs 02/26/23 extended release 12 hr (Mucinex) methylprednisolone 4 mg tablets in See Rx Instructions .Route 02/26/23 a dose pack (Medrol (Nathaniel)) .COMPLEX 6 days #21 tabs Allergies Allergy/AdvReac Type Severity Reaction Status Date / Time No Known Allergies Allergy Verified 05/13/22 13:22 Worker's Comp Is this a Worker's Comp case?: No [facility] Disclaimer: The information contained in this section may have been updated after the patient was seen, as this information can be updated by other users. Medical History (Updated 02/26/23 @ 08:47 by Liseth Anrdew
[2023-02-26 08:34] LABS: UTC Strep Screen (Rapid) Negative (Negative)
[2023-02-26 09:01] VITALS: BP 141/84; PULSE 81; RESP 20; TEMP 37; O2SAT 99
== END 2023-02-26 09:02 | disposition home or self-care (01) ==
PROVIDERS: Emergency Provider Nurse Practitioner; PCP Nurse Practitioner Family
DX: J06.9 Acute upper respiratory infection, unspecified (principal); H73.93 Unspecified disorder of tympanic membrane, bilateral; J02.9 Acute pharyngitis, unspecified; J04.0 Acute laryngitis
CPT/HCPCS: 87880; 99204; 99212; G0463

== ENCOUNTER 2023-07-02 13:42 | Emergency (ER) | payer BC, SELFPAY ==
[2023-07-02 13:43] VITALS: BP 114/82; PULSE 72; RESP 16; TEMP 36.7; O2SAT 100; BMI 30.4
--- NOTE | 2023-07-02 14:53 | PC.NURSE ---
DR BORJA AT BEDSIDE
--- NOTE | 2023-07-02 14:57 | US_ITS ---
PROCEDURE INFORMATION: Exam: US Pelvis, Transvaginal Exam date and time: 07/02/2023 3:31 PM Age: 27 years old Clinical indication: Other: Heavy bleeding; Additional info: Severe crampy abd pain, vag bld TECHNIQUE: Imaging protocol: Real-time transvaginal pelvic ultrasound with image documentation. Transvaginal imaging was used for better evaluation of the endometrium, adnexa, and/or cervix. COMPARISON: US OB FOLLOW UP 12/16/2021 1:23 PM FINDINGS: Uterus: Uterus measures 7.5 x 3.6 x 5.2 cm. Endometrial lining measures 0.7 cm. Right ovary/adnexa: Right ovary measures 2.0 x 2.6 x 1.4 cm. There is normal vascular flow to the right ovary. Left ovary/adnexa: Left ovary measures 2.5 x 3.3 x 1.6 cm. There is normal vascular flow to the left ovary. Intraperitoneal space: No free fluid. IMPRESSION: Unremarkable pelvic ultrasound.
--- NOTE | 2023-07-02 14:57 | PC.NURSE ---
notified rad of transvaginal u/s order.
--- NOTE | 2023-07-02 14:58 | HMH.EDGENADL ---
Discharge Plan Disposition Patient Disposition: Home, Self-Care Prescriptions Prescriptions: No Action azithromycin [Zithromax Z-Nathaniel] 250 mg tablet See Rx Instructions .ROUTE .COMPLEX 5 Days Qty: 6 0RF Rx Instructions: For 250 mg dose pack: take 500 mg today (day 1), then 250 mg for 4 days (days 2-5) methylprednisolone [Medrol (Nathaniel)] 4 mg tablets,dose pack See Rx Instructions .Route .COMPLEX 6 Days Qty: 21 0RF Rx Instructions: taper pack; guaifenesin [Mucinex] 600 mg tablet extended release 12hr 1,200 mg PO BID PRN (Reason: cough) Qty: 20 0RF Referrals Follow up/Referrals: Shashi Mendoza APRN [Primary Care Provider] - See instructions Activity Restrictions/Add. Instructions Additional Instructions/Restrictions: At this time is felt you are safe to be discharged home. New or worsening symptoms please do not hesitate to return the emergency department. Please take ibuprofen every 6 hours until you are seen tomorrow. Please follow-up with Dr. Finney tomorrow, at the gynecology clinic at 1:15 PM. Clinical Impressions Clinical Impression: Dysfunctional uterine bleeding Discharge ED Provider: Isaias Scott [facility] Adult HPI <Nazario Ramirez MD - Last Filed: 07/02/23 15:02> General Chief complaint: Vaginal Bleeding Stated complaint: VAGINAL BLEEDING, CRAMPS Time Seen by Provider: 07/02/23 14:46 Mode of Arrival: Ambulatory Source of Information: Patient Limitations: No Limitations Description of Symptoms (Recalled from ER Triage Doc. by RN): Pt reports heavy vaginal bleeding that began lastnight, pt reports severe lower abd cramping. Pt reports she felt like she was having contractions. Pt reports LMP was 2 weeks ago- reports was a normal menstrual cycle. History of Present Illness HPI narrative: Patient is a 27-year-old female here with profuse vaginal bleeding and severe abdominal cramping that is been intermittent since yesterday evening. She states that she has had a bilateral tubal ligation LMP was 2 weeks ago and she is typically very normal. She has never had dysfunction uterine bleeding that she knows of in the past. Patient denies any positive test at home no history of ectopic pregnancies. She denies any fevers chills and history of adenomyosis or endometriosis. Related Data Previous Rx's Medication Instructions Recorded azithromycin 250 mg tablet See Rx Instructions PO .COMPLEX 5 02/26/23 (Zithromax Z-Nathaniel) days #6 tabs guaifenesin 600 mg tablet, 1,200 mg PO BID PRN cough #20 tabs 02/26/23 extended release 12 hr (Mucinex) methylprednisolone 4 mg tablets in See Rx Instructions .Route 02/26/23 a dose pack (Medrol (Nathaniel)) .COMPLEX 6 days #21 tabs Allergies Allergy/AdvReac Type Severity Reaction Status Date / Time No Known Allergies Allergy Verified 05/13/22 13:22 PFS <Nazario Ramirez MD - Last Filed: 07/02/23 15:02> PFS Disclaimer: The information contained in this section may have been updated after the patient was seen, as this information can be updated by other users. Medical History (Updated 07/02/23 @ 15:02 by Nazario Ramirez MD) PVCs (premature ventricular contractions) Surgical History (Updated 05/13/22 @ 13:25 by Marleni Rodriguez [facility]) H/O tubal ligation History of delivery, antepartum [place] teeth removed Social History (Updated 05/13/22 @ 18:52 by Lianne Ramirez MD) Smoking Status: Never smoker alcohol intake: never substance use type: denies use current occupational status: unemployed Travel in the last 8 weeks: None household members: significant other housing: house caffeine: No <Nazario Ramirez MD - Last Filed: 07/02/23 15:02> ROS Obtained: Yes All systems reviewed & no additional complaints except as documented Physical Exam <Nazario Ramirez MD - Last Filed: 07/02/23 15:02> General General appearance: alert Respiratory Respiratory exam: Present normal lung sounds bilaterally Cardiovascular
[2023-07-02 15:14] VITALS: BP 116/78; PULSE 62; RESP 20; O2SAT 100
--- NOTE | 2023-07-02 15:19 | PC.NURSE ---
RADIOLOGY NOTIFIED OF U/S
[2023-07-02 15:22] LABS: Basophils % 0.7 % (0.1-2.0); Eosinophils # 0.1 K/mm3 (0.0-0.4); Eosinophils % 1.5 % (0.1-12.0); Hematocrit 43.4 % (37.0-47.0); Hemoglobin 15.1 g/dL (12.2-16.2); Lymphocytes # 1.5 K/mm3 (0.7-4.5); Lymphocytes % 27.3 % (10-50); Mean Corpuscular HGB Conc 34.8 g/dL (31.8-35.4); Mean Corpuscular Hemoglobin 30.6 pg (27.0-31.2); Mean Corpuscular Volume 87.9 fl (81-99); Mean Platelet Volume 8.3 fl (7.4-10.4); Monocytes # 0.3 K/mm3 (0.1-1.0); Monocytes % 5.1 % (1.7-9.3); Neutrophils # 3.5 K/mm3 (1.8-7.8); Neutrophils % 65.5 % (37.0-80.0); Platelet Count 230 K/mm3 (142-424); Red Blood Count 4.94 M/mm3 (4.20-5.40); Red Cell Distribution Width 12.9 % (11.5-17.5); White Blood Count 5.4 K/mm3 (4.8-10.8)
[2023-07-02 15:27] LABS: Chloride 104 mmol/L (98-107); Potassium 4.2 mmoL/L (3.5-5.1); Sodium 137 mmol/L (136-145)
[2023-07-02 15:29] LABS: Activated Partial Thrombo Time 29.6 seconds (22.8-30.6); INR 1.01 (0.9-1.1); Prothrombin Time 10.9 seconds (10.1-12.5)
[2023-07-02 15:30] LABS: Alanine Aminotransferase 22 U/L (12-78); Albumin Level 4.9 g/dl (3.5-5.0); Albumin/Globulin Ratio 1.4 (1.1-1.8); Alkaline Phosphatase 72 U/L (38-126); Anion Gap 11.2 mEq/L (5-15); Aspartate Amino Transferase 36 U/L (14-36); Bilirubin,Total 0.6 mg/dl (0.2-1.3); Blood Urea Nitrogen 14 mg/dl (7-17); Carbon Dioxide 26 mmol/L (22.0-30.0); Creatinine Clearance Estimated 173 mL/min (50-200); Estimated Glomerular Filt Rate 100 ml/min (>60); GFR (African American) 121 ML/MIN (>60); Globulin 3.4 g/dL (1.3-3.2); Total Protein,Serum 8.3 g/dl (6.3-8.2)
[2023-07-02 15:31] LABS: Calcium 9.3 mg/dl (8.4-10.2); Glucose 88 mg/dl (74-100)
[2023-07-02 15:47] LABS: HCG Qualitative, Serum Negative (Negative)
--- NOTE | 2023-07-02 15:55 | PC.NURSE ---
PT RETURNED FROM US
[2023-07-02 16:15] VITALS: PULSE 73; O2SAT 100
--- NOTE | 2023-07-02 16:29 | PC.NURSE ---
pt has no needs at this time
--- NOTE | 2023-07-02 17:10 | PC.NURSE ---
DR KELLOGG AT BEDSIDE TO UPDATE PT
[2023-07-02 17:25] VITALS: BP 115/74; PULSE 70; RESP 16; TEMP 36.7; O2SAT 99
== END 2023-07-02 17:25 | disposition home or self-care (01) ==
PROVIDERS: Student in an Organized Health Care Education/Training Program; Emergency Provider Emergency Medicine; PCP Nurse Practitioner Family
DX: N93.8 Other specified abnormal uterine and vaginal bleeding (principal); R10.30 Lower abdominal pain, unspecified
CPT/HCPCS: 76830; 80053; 84703; 85025; 85610; 85730; 96361; 96374; 96375; 99284; J2405

== ENCOUNTER → 2023-09-03 13:22 | Outpatient (CLI) | payer BC, SELFPAY ==
[2023-09-03 14:00] LABS: Basophils % 0.6 % (0.1-2.0); Eosinophils # 0.1 K/mm3 (0.0-0.4); Hematocrit 42.9 % (37.0-47.0); Hemoglobin 14.7 g/dL (12.2-16.2); Lymphocytes # 1.5 K/mm3 (0.7-4.5); Lymphocytes % 25.8 % (10-50); Mean Corpuscular HGB Conc 34.2 g/dL (31.8-35.4); Mean Corpuscular Hemoglobin 30.1 pg (27.0-31.2); Mean Platelet Volume 8.3 fl (7.4-10.4); Monocytes # 0.3 K/mm3 (0.1-1.0); Monocytes % 5.6 % (1.7-9.3); Neutrophils # 3.9 K/mm3 (1.8-7.8); Neutrophils % 66.9 % (37.0-80.0); Platelet Count 259 K/mm3 (142-424); Red Blood Count 4.88 M/mm3 (4.20-5.40); Red Cell Distribution Width 12.9 % (11.5-17.5); White Blood Count 5.8 K/mm3 (4.8-10.8)
[2023-09-03 14:13] LABS: Chloride 104 mmol/L (98-107)
[2023-09-03 14:14] LABS: Potassium 3.7 mmoL/L (3.5-5.1); Sodium 140 mmol/L (136-145)
[2023-09-03 14:16] LABS: Alanine Aminotransferase 21 U/L (12-78); Alkaline Phosphatase 55 U/L (38-126); Anion Gap 12.7 mEq/L (5-15); Aspartate Amino Transferase 27 U/L (14-36); Bilirubin,Total 0.5 mg/dl (0.2-1.3); Blood Urea Nitrogen 16 mg/dl (7-17); Carbon Dioxide 27 mmol/L (22.0-30.0); Estimated Glomerular Filt Rate 100 ml/min (>60); GFR (African American) 121 ML/MIN (>60)
[2023-09-03 14:17] LABS: Albumin Level 4.7 g/dl (3.5-5.0); Albumin/Globulin Ratio 1.7 (1.1-1.8); Calcium 9.2 mg/dl (8.4-10.2); Globulin 2.8 g/dL (1.3-3.2); Glucose 82 mg/dl (74-100); Total Protein,Serum 7.5 g/dl (6.3-8.2)
[2023-09-03 14:50] LABS: HCG,Quantitative < 2 mIU/ml (0-5.42)
== END ==
LOC: LAB 13:23
PROVIDERS: PCP Nurse Practitioner Family; Visit Provider Obstetrics & Gynecology
DX: Z01.812 Encounter for preprocedural laboratory examination (principal); N93.9 Abnormal uterine and vaginal bleeding, unspecified; Z32.00 Encounter for pregnancy test, result unknown
CPT/HCPCS: 36415; 80053; 84702; 85025; 86850

== ENCOUNTER 2023-09-09 07:54 | Observation (INO) | payer BC, SELFPAY ==
[2023-09-08 10:15] VITALS: BMI 30.4
[2023-09-09] VITALS (20 sets, daily range): BP systolic 96–127; BP diastolic 48–76; PULSE 64–90; RESP 14–20; TEMP 36.2–36.6; O2SAT 95–100; BMI 32.0
--- NOTE | 2023-09-09 07:41 | P.HP_ITS ---
History of Present Illness *Admission Date: 09/09/23 *Reason for visit:: hysterectomy *History of present illness: Mikaela Xiao is a 27yo presenting today hysterectomy secondary to AUB and heavy uterine bleeding. -Reports she still having heavy menstrual bleeding and passing several large clots. In the past she has tried Depo-Provera and OCP pills without control. Her menstrual cycles are so heavy that she is missing work. She is also having difficulty taking care of her children because her cycles are still heavy and they make her so fatigued. She was previously considering an endometrial ablation however she has concerns about masking the uterine cancer and also the ablation not controlling her cycles. She desires definitive management with hysterectomy. -She was also being followed for an abnormal Pap smear on 07/15/2023 was LSIL/[place] 1. Positive HPV 16. Colposcopy on 08/12/23 was benign, [facility] Disclaimer: The information contained in this section may have been updated after the patient was seen, as this information can be updated by other users. Medical History PVCs (premature ventricular contractions) Surgical History H/O tubal ligation History of D&C [place] teeth removed Family History Grandmother PCOS (polycystic ovarian syndrome) Other Cancer Social History Smoking Status: Never smoker alcohol intake: never substance use type: denies use current occupational status: employed Travel in the last 8 weeks: None household members: significant other housing: house caffeine: No Meds Home Medications and Allergies Home Medications Medication Instructions Recorded Confirmed Type No Known Home Medications 07/28/23 09/09/23 History New Prescriptions to Start Prescriptions: Allergies Allergy/AdvReac Type Severity Reaction Status Date / Time No Known Allergies Allergy Verified 09/09/23 07:43 Exam Data for Last 24 hours I & O for Last 24 hours: Intake & Output 09/06/23 09/07/23 09/08/23 09/09/23 23:59 23:59 23:59 23:59 Weight 200 lb Constitutional Constitutional: no acute distress *Routine HEENT Exam Head: Present normocephalic Eye: Present EOMI and PERRL ENT: Present mucous membranes moist *Routine Neck Exam Neck: Present supple; Absent lymphadenopathy *Routine Respiratory Exam Respiratory: Present CTA bilaterally *Routine Cardiovascular Exam Cardiovascular: Present RRR *Routine Abdominal Exam Abdominal: Present soft and normoactive bowel sounds; Absent tenderness *Routine Rectal Exam Rectal:: deferred *Routine Genitalia Exam Genitalia:: deferred *Routine Extremities Exam Extremities: Absent cyanosis, clubbing or edema *Routine Skin Exam Skin: Present warm; Absent rash *Routine Neurological Exam Neurological: Present alert and oriented X3 Assessment and Plan *Assessment and plan (1) H/O colposcopy with cervical biopsy: Status: Acute Category: Surgical Code(s): Z98.890 - Other specified postprocedural states (2) Human papillomavirus (HPV) type 16 DNA detected in cervical specimen: Status: Acute Category: Medical Code(s): R87.810 - Cervical high risk human papillomavirus (HPV) DNA test positive (3) LGSIL on Pap smear of cervix: Status: Acute Category: Medical Code(s): R87.612 - Low grade squamous intraepithelial lesion on cytologic smear of cervix (LGSIL) (4) Menorrhagia: Status: Acute Category: Medical Code(s): N92.0 - Excessive and frequent menstruation with regular cycle (5) Abnormal uterine bleeding (AUB): Status: Acute Category: Medical Code(s): N93.9 - Abnormal uterine and vaginal bleeding, unspecified Plan #Menorrhagia #Abnormal uterine bleeding -She has previously failed Depo-Provera and OCPs. -Patient desires definitive surgical management. Patient has concerns for ablation and possibly masking uterine cancer later in life. She declines ablation at this time -Patient elects for hysterectomy. Discussed the risk benefits alternatives. Discussed the risks to include infection, bleeding, injury to surrounding structures including the bladder, bowel, neurovascular bundles, and ureters. Patient consented to blood transfusion if deemed necessary. Patient counseled that she received 2 g of Ancef as for infection prophylaxis. -Discussed with the patient that we would proceed with a total vaginal hysterectomy and bilateral salpingectomy with a Boland culdoplasty for prophylactic apical support, and cystoscopy. no noticeable support defects on exam her last visit. possible BSO and possible ERROL. Pt will remain inpatient for obs overnight and anticipate dc home tomrrow.
[2023-09-09] MEDS: LACTATED RINGERS 1000ML 1,000 ML 100 ML IV (07:50)
--- NOTE | 2023-09-09 08:05 | P.PNANES_ITS ---
[facility] Disclaimer: The information contained in this section may have been updated after the patient was seen, as this information can be updated by other users. Medical History PVCs (premature ventricular contractions) Surgical History H/O tubal ligation History of D&C [place] teeth removed Family History Grandmother PCOS (polycystic ovarian syndrome) Other Cancer Social History Smoking Status: Never smoker alcohol intake: never substance use type: denies use current occupational status: employed Travel in the last 8 weeks: None household members: significant other housing: house caffeine: No [facility] Anesthesia Checklist Patient Identification Patient Identification: Arm Band and Family Structural Data Admitted From: Home Planned Operative Procedure/s: TVH , BSO. Possible ERROL. Consent for Planned Operative Procedure(s) Verified: Yes Verified Documents: Surgical Consent and History and Physical NPO Status Verified Time NPO: 00:00 Additional verifications Patient : No Anesthesia Reactions: Yes Hx Blood Transfusions: No Blood Transfusion Reaction: No Cephalosporin Allergy: No Previous Colonoscopy: No Airway Assessment Mallampati Score:: Class I C-Spine Mobility Assessed: Yes TMJ Mobility Assessed: Yes Dentition: Good Dentition Neurological Assessment Level of Consciousness: Awake, Alert, Appropriate and Follows Commands Hx Seizures: No Numbness or tingling in extremities: No Anesthesia Plan Anesthesia Risk discussed: Yes ASA Class: I Anesthesia Type: General Preoperative Comments Pre-Operative Comments: Slow to awaken. Low blood presure. Mother has same problem with anesthesia.
[2023-09-09] MEDS: CEFAZOLIN SODIUM 2 GM in 0.9 % SODIUM CHLORIDE 100 ML IV (09:05)
[2023-09-09] MEDS: METHYLENE BLUE 0.5% 10ML AMPULE 50 MG IV (09:10)
[2023-09-09] MEDS: LIDOCAINE 1% W/EPI 1:100,000 20ML VIAL 20 ML ×2 (09:20→09:21)
--- NOTE | 2023-09-09 10:14 | EXP.ANES.I ---
[facility] Anesthesia Record Part I Anesthesia Record I Intake, IV Amount: 400 Hydration: Adequate Estimated blood loss (mL): 150 Urine output (mL): 0 Blood Pressure: 96/65 SaO2: 97 Pulse Rate: 90 Airway Patency: Patent Respiratory Rate: 20 Temperature: 98 F Patient is:: Awake Stable to PACU at:: 10:13
[2023-09-09] MEDS: HYDROMORPHONE 2MG/ML SYRINGE 0.5 MG IV (10:24)
--- NOTE | 2023-09-09 10:34 | P.OP_ITS ---
Date of procedure: 09/09/23 Pre-op Diagnosis:: 1. Abnormal uterine bleeding 2. Heavy uterine bleeding Post-op Diagnosis:: 1. Abnormal uterine bleeding 2. Heavy uterine bleeding Procedure performed:: 1. Total vaginal hysterectomy 2. Right salpingectomy 3. Cystoscopy Surgeon:: Jacki Finney DO Machine Repairer Maintenance(s):: Kendrick Vernon MD PARAPROFESSIONAL EDUCATION ASSISTANT:: Shahana Nessajina Anesthesia: GETA Estimated blood loss (mL): 150 Operative findings:: Uterine EUA was significant for 8wk size uterus with regular borders at the fundus. Grade 2 uterine descent was appreciated. No gross adnexal masses were appreciated. Cystoscopy revealed bilaterally patent ureters without any bladder defects or injuries. Operative note:: Pt was taken back to the OR where GETA was obtained without difficulty. SCDs were placed and found to be working. The patient was placed in dorsal lithotomy position using yellowfin stirrups. The vagina was prepped and draped in the normal sterile fashion. An in and out catheter was used to drain the bladder and 20 mL of methylene blue normal saline were inserted into the bladder. A weighted speculum and Chitina were used to visualize the cervix. Two Ellison tenaculums were used to grasp the anterior and posterior ectocervix on the right and left. The bovie was used to make a circumferential incision at the cervicovaginal junction. A raytec was used to bluntly dissect the paracervical fascia from the cervix off the vaginal mucosa. Metzenbaum scissors and pickups were used to enter the colpotomy posteriorly and a long weighted speculum was placed. Abdominal entry was confirmed by the presence of the ovary and omentum. The left uterosacral ligament was grasped with a red clamp, cut, and suture ligated with 0-Vicryl. This was tagged for later incorporation to the cuff. This process was repeated on the contralateral side. The anterior vaginal tissue was further dissected off the cervix. Pickups and Metzenbaum scissors were used to make the anterior colpotomy. A Jacqueline retractor was placed. Entry to the abdominal cavity was confirmed with the presence of omentum and the left ovary was visualized. The Enseal was used to dissect the broad ligament down the lateral aspect of the uterine body on the left side. The cardinal ligaments and uterine vessels were identified bilaterally, grasped with the Enseal, coagulated and transected. This process was repeated on the right. The utero-ovarian ligament was clamped, coagulated and transected on the left. At this time there was only a very small amount of the broad ligament and the round ligament noted to be attached on the right. The Enseal was used to take this down. The uterus was free and removed from the vagina, passed off the operative field and sent to pathology for evaluation. The right fallopian tube was grasped with an Allis. A sponge stick was placed to create a safe distance from the bowel and the Enseal was used to transect the mesosalpinx. Hemostasis noted. Fallopian tube passed off the operative field. The left fallopian tube remnant was not easily or safely accessible and left in situ. The posterior peritoneum was fixed to the posterior vaginal cuff with a running locking stitch. 0-PDS was used to place a Boland stitch for the culdoplasty, incorporating the bilateral uterosacral ligaments. The vaginal cuff was then closed with 0 Vicryl in a running locking fashion. Boland culdoplasty was tied to suspend the apex of the vagina. Hemostasis was noted. Cystoscopy Cystoscopy was performed with a 70 degree cystoscope and distended with normal saline. Inspection of the bladder showed a normal-looking, blue dyed, smooth bladder mucosa with no evidence of injury, suture, puckering, or other abnormalities.? Both ureteral meatuses were visualized and were noted to be expelling urine in routine fashion.? Cystoscope was removed. Sponge, instrument and needle counts were correct x3, per nursing. The patient was awakened from general anesthesia and transferred to the PACU in stable condition. Condition: stable Disposition: floor Specimens:: Uterine body, cervix, right fallopian tube Complications:: None
--- NOTE | 2023-09-09 10:45 | PC.NURSE ---
arrived by bed to floor from surgery
[2023-09-09] MEDS: LACTATED RINGERS 1000ML 1,000 ML 125 ML IV ×2 (11:19→19:40)
[2023-09-09] MEDS: KETOROLAC 30MG/ML VIAL 30 MG IV ×3 (11:19→22:49)
--- NOTE | 2023-09-09 11:28 | HMH.PHAINT1 ---
Pharmacy Intervention Comments: Spoke with patient at bedside, patient confirmed she does not take any medications at home prior to admission.
[2023-09-09] MEDS: OXYCODONE 5MG IMMEDIATE RELEASE TABLET 5 MG PO ×2 (13:15→18:36)
--- NOTE | 2023-09-09 13:47 | EXP.ANES.II ---
[facility] Anesthesia Record Part II Anesthesia Record Part II Discharge Time: 10:43 Destination: Medical Surgical Department PACU nurse assessment reviewed?: Yes Patient Condition:: Good Anesthesia Complications:: None Swallowing reflex intact?: Yes Airway Patency: Patent Cyanosis?: No Blood Pressure: 107/61 SaO2: 97 Respiratory Rate: 18 Pulse Rate: 77 Temperature: 97.9 F Mental Status: Alert & Oriented Pain level:: 3 Nausea and/or vomitting:: None Intake, IV Amount: 0 Hydration: Adequate
--- NOTE | 2023-09-09 18:41 | PC.NURSE ---
Patient new admit from PACU with total vaginal hysterectomy. Patient states bloody discharge, less than 1 pad since admission no clots noted, patient's pain has been well controlled with medication. VSS patient a&Ox4.
[2023-09-10] VITALS: BP 112/56; PULSE 73; RESP 16; TEMP 36.6; O2SAT 99
[2023-09-10] MEDS: LACTATED RINGERS 1000ML 1,000 ML 125 ML IV (03:26)
[2023-09-10 04:00] VITALS: BP 110/70; PULSE 79; RESP 16; TEMP 36.7; O2SAT 99; BMI 32.2
[2023-09-10] MEDS: KETOROLAC 30MG/ML VIAL 30 MG IV ×2 (04:30→10:22)
--- NOTE | 2023-09-10 04:33 | PC.NURSE ---
PATIENT AMBULATORY TO BR. VOIDS WITHOUT DIFFICULTY. SCANT AMT OF PINK-RED DRAINAGE FROM THE VAGINAL VAULT. NO C/O PAIN. RECEIVING TORADOL 30 MG IVP Q 6 HRS. SIG OTHER AT BEDSIDE. TOLERATING FOOD AND FLUIDS. + BOWEL SOUNDS X 4. VSS/AFEBRILE.
[2023-09-10 06:31] LABS: Basophils % 0.5 % (0.1-2.0); Eosinophils % 0.5 % (0.1-12.0); Hemoglobin 12.7 g/dL (12.2-16.2); Lymphocytes # 1.4 K/mm3 (0.7-4.5); Lymphocytes % 35.1 % (10-50); Mean Corpuscular HGB Conc 34.2 g/dL (31.8-35.4); Mean Corpuscular Hemoglobin 30.1 pg (27.0-31.2); Mean Corpuscular Volume 87.9 fl (81-99); Mean Platelet Volume 8.7 fl (7.4-10.4); Monocytes # 0.3 K/mm3 (0.1-1.0); Monocytes % 7.8 % (1.7-9.3); Neutrophils # 2.2 K/mm3 (1.8-7.8); Neutrophils % 56.1 % (37.0-80.0); Platelet Count 148 K/mm3 (142-424); Red Blood Count 4.21 M/mm3 (4.20-5.40); White Blood Count 3.9 K/mm3 (4.8-10.8)
[2023-09-10 07:41] VITALS: BP 106/23; PULSE 60; RESP 17; TEMP 36.4; O2SAT 97
--- NOTE | 2023-09-10 09:49 | EXP.DC.SUM ---
General Admission date:: 09/09/23 Discharge date: 09/10/23 HPI HPI HPI: Mikaela Xiao is a 27yo presenting today hysterectomy secondary to AUB and heavy uterine bleeding. -Reports she still having heavy menstrual bleeding and passing several large clots. In the past she has tried Depo-Provera and OCP pills without control. Her menstrual cycles are so heavy that she is missing work. She is also having difficulty taking care of her children because her cycles are still heavy and they make her so fatigued. She was previously considering an endometrial ablation however she has concerns about masking the uterine cancer and also the ablation not controlling her cycles. She desires definitive management with hysterectomy. -She was also being followed for an abnormal Pap smear on 07/15/2023 was LSIL/[place] 1. Positive HPV 16. Colposcopy on 08/12/23 was benign, [place] I Hospital Course Hospital Course Hospital Course: POD#1 from a TVH and right salpingectomy. doing well. ambulating and voiding without difficulty. no dysuria. passing flatus. pain controlled with toradol. states oxycodone doesnt work well for her. Exam Data for Last 24 hours Vital signs and Labs for Last 24 Hours: Temp Pulse Resp BP Pulse Ox O2 Del Method 97.6 F 60 17 106/23 L 97 Room Air 09/10/23 07:41 09/10/23 07:41 09/10/23 07:41 09/10/23 07:41 09/10/23 07:41 09/10/23 09:00 Laboratory Results - last 24 hr 09/10/23 05:28: WBC 3.9 L, RBC 4.21, Hgb 12.7, Hct 37.0, MCV 87.9, MCH 30.1, MCHC 34.2, RDW 13.0, Plt Count 148, MPV 8.7, Neut % (Auto) 56.1, Lymph % (Auto) 35.1, Garrett % (Auto) 7.8, Eos % (Auto) 0.5, Baso % (Auto) 0.5, Neut # (Auto) 2.2, Lymph # (Auto) 1.4, Garrett # (Auto) 0.3, Eos # (Auto) 0.0, Baso # (Auto) 0.0 I & O for Last 24 hours: Intake & Output 09/07/23 09/08/23 09/09/23 09/10/23 23:59 23:59 23:59 23:59 Intake Total 910 / 1390 2350 / 2350 Output Total Balance 909 / 1389 2348 / 2348 Weight 200 lb 210 lb 8 oz 212 lb 12.8 oz Constitutional Constitutional: no acute distress *Routine HEENT Exam Head: Present normocephalic Eye: Present EOMI and PERRL ENT: Present mucous membranes moist *Routine Neck Exam Neck: Present supple; Absent lymphadenopathy *Routine Respiratory Exam Respiratory: Present CTA bilaterally *Routine Cardiovascular Exam Cardiovascular: Present RRR *Routine Abdominal Exam Abdominal: Present soft and normoactive bowel sounds; Absent tenderness *Routine Extremities Exam Extremities: Absent cyanosis, clubbing or edema *Routine Skin Exam Skin: Present warm; Absent rash *Routine Neurological Exam Neurological: Present alert and oriented X3 Results Data Completed and Pending Labs on day of discharge: Labs from last 24 hours 09/10/23 05:28 WBC 3.9 L RBC 4.21 Hgb 12.7 Hct 37.0 MCV 87.9 MCH 30.1 MCHC 34.2 RDW 13.0 Plt Count 148 MPV 8.7 Neut % (Auto) 56.1 Lymph % (Auto) 35.1 Garrett % (Auto) 7.8 Eos % (Auto) 0.5 Baso % (Auto) 0.5 Neut # (Auto) 2.2 Lymph # (Auto) 1.4 Garrett # (Auto) 0.3 Eos # (Auto) 0.0 Baso # (Auto) 0.0 DS: Diagnosis Discharge Diagnosis (1) H/O colposcopy with cervical biopsy: Status: Acute Code(s): Z98.890 - Other specified postprocedural states (2) Human papillomavirus (HPV) type 16 DNA detected in cervical specimen: Status: Acute Code(s): R87.810 - Cervical high risk human papillomavirus (HPV) DNA test positive (3) LGSIL on Pap smear of cervix: Status: Acute Code(s): R87.612 - Low grade squamous intraepithelial lesion on cytologic smear of cervix (LGSIL) (4) Menorrhagia: Status: Acute Code(s): N92.0 - Excessive and frequent menstruation with regular cycle (5) Abnormal uterine bleeding (AUB): Status: Acute Code(s): N93.9 - Abnormal uterine and vaginal bleeding, unspecified Problem details: Doing well. Discharge home today. Follow-up in the office in 1 to 2 weeks Meds Home Medications and Allergies Home Medications Medication Instructions Recorded Confirmed Type acetaminophen 500 mg tablet 500 mg PO Q6H PRN fever #30 tabs 09/10/23 Rx hydrocodone 5 mg-acetaminophen 325 1 tab PO BID PRN pain #10 tabs 09/10/23 Rx mg tablet ketorolac 10 mg tablet 10 mg PO Q6H PRN pain 5 days #14 09/10/23 Rx tabs sennosides 8.6 mg tablet (Senna 8.6 mg PO BIDP PRN Constipation 09/10/23 Rx Lax) #60 tabs New Prescriptions to Start Prescriptions: acetaminophen Jacki Finney hydrocodone-acetaminophen Jacki Finney ketorolac Jacki Finney sennosides [Senna Lax] Jacki Finney Allergies Allergy/AdvReac Type Severity Reaction Status Date / Time No Known Allergies Allergy Verified 09/09/23 07:43 Discharge Plan Disposition Patient Disposition: Home, Self-Care Follow up Plan Follow up with: Jacki Finney DO [Staff Physician] - 09/23/23 9:00 am Prescriptions/Medication Reconciliation: New ketorolac 10 mg tablet 10 mg PO Q6H PRN (Reason: pain) 5 Days Qty: 14 0RF acetaminophen 500 mg tablet 500 mg PO Q6H PRN (Reason: fever) Qty: 30 3RF sennosides [Senna Lax] 8.6 mg Tablet 8.6 mg PO BIDP PRN (Reason: Constipation) Qty: 60 2RF hydrocodone-acetaminophen 5-325 mg tablet 1 tab PO BID PRN (Reason: pain) Qty: 10 0RF Problem Reconciliation Problems Reviewed?: Yes Patient Discharge Instructions ACTIVITY: Continue current activity DIET: continue same diet and regular diet Additional Instructions: You had a total vaginal hysterectomy and right salpingectomy. This means that your uterus, cervix, and right fallopian tube were removed. The top of your vagina is closed with dissolvable sutures. Removing your fallopian tubes decreases your lifetime risk of ovarian cancer. You will follow-up in office for a postop visit at 1 weeks and at 6 weeks. At your 6-week postop appointment you will have a pelvic exam to ensure your cuff is healing well. Activity: - No lifting more than 10 lbs for 6 weeks. - No driving while you are taking narcotic pain medication. Medications: -Toradol/ketorolac (a nonsteroidal anti-inflammatory) for pain. Please take scheduled for the first 2-3 days as this will help control your pain -Hydrocodone/acetaminophen (a narcotic pain medication) use the narcotic pain medication for breakthrough or severe pain. You will want to stop the narcotic pain medication first. Narcotic pain medication can be habit forming so please only use this medication if you need it. - Senna (a stool softener) use this medication for constipation as needed. Narcotics can increase your risk for constipation Please call the office or return to the ER if you have any of the followin. bleeding more than 1 pad an hour for 2 hours 2. pain that does not respond to your narcotic pain medication 3. dizziness or lightheadedness such that you lose consciousness Questions or concerns: It is my privilege to be your doctor. Please let me know if you have other questions or concerns. Jacki Finney DO [facility] [place], [place] [address] Patient Instructions: DI for Hysterectomy Providers Primary Care Provider: Shashi Mendoza Admit Provider: Jacki Finney Attending Provider: Jacki Finney
--- NOTE | 2023-09-11 13:14 | CARE MANAGER ---
Contacted patient related to hospital discharge. She states that she is doing well an dhad her new meds before she left the hospital. She is aware of follow up appointment and denies questions or concerns. HEATHER Hickman
== END 2023-09-10 11:07 | disposition home or self-care (01) ==
LOC: 2ND 07:55
PROVIDERS: Admitting Provider Obstetrics & Gynecology; PCP Nurse Practitioner Family; Visit Provider Obstetrics & Gynecology
PROC: (CPT 58262; principal; 2023-09-09 09:00)
DX: N92.0 Excessive and frequent menstruation with regular cycle (principal); R87.810 Cervical high risk human papillomavirus (HPV) DNA test positive; R87.612 Low grade squamous intraepithelial lesion on cytologic smear of cervix (LGSIL)
CPT/HCPCS: 58262; 52000; 36415; 85025; 86850; 96374; G0378; J2405

== ENCOUNTER 2023-11-17 16:06 | Emergency (ER) | payer BC, SELFPAY ==
[2023-11-17 16:09] VITALS: BP 145/80; PULSE 83; RESP 18; O2SAT 98; BMI 32.6
--- NOTE | 2023-11-17 16:15 | PC.NURSE ---
MD patel at bedside
--- NOTE | 2023-11-17 16:32 | PC.NURSE ---
pt getting changed into gown, per md request
--- NOTE | 2023-11-17 16:41 | PC.NURSE ---
DR HUNTER PATRICIA
--- NOTE | 2023-11-17 16:43 | PC.NURSE ---
DR WEAVER SPEAKING WITH DR HARRISON
[2023-11-17 16:45] LABS: Alanine Aminotransferase 25 U/L (12-78); Albumin Level 4.8 g/dl (3.5-5.0); Albumin/Globulin Ratio 1.6 (1.1-1.8); Alkaline Phosphatase 64 U/L (38-126); Anion Gap 11.9 mEq/L (5-15); Aspartate Amino Transferase 31 U/L (14-36); Bilirubin,Total 0.4 mg/dl (0.2-1.3); Blood Urea Nitrogen 18 mg/dl (7-17); Calcium 9.4 mg/dl (8.4-10.2); Carbon Dioxide 25 mmol/L (22.0-30.0); Chloride 105 mmol/L (98-107); Creatinine Clearance Estimated 184 mL/min (50-200); Estimated Glomerular Filt Rate 100 ml/min (>60); GFR (African American) 121 ML/MIN (>60); Glucose 92 mg/dl (74-100); Potassium 3.9 mmoL/L (3.5-5.1); Sodium 138 mmol/L (136-145); Total Protein,Serum 7.8 g/dl (6.3-8.2)
--- NOTE | 2023-11-17 16:45 | CT_ITS ---
PROCEDURE INFORMATION: Exam: CT Abdomen And Pelvis With Contrast Exam date and time: 11/17/2023 4:57 PM Age: 28 years old Clinical indication: Other: Vaginal bleeding; Additional info: Hysterectomy 8 wks ago, new vaginal bleeding x3d TECHNIQUE: Imaging protocol: Computed tomography of the abdomen and pelvis with contrast. Radiation optimization: All CT scans at this facility use at least one of these dose optimization techniques: automated exposure control; mA and/or kV adjustment per patient size (includes targeted exams where dose is matched to clinical indication); or iterative reconstruction. Contrast material: ISOVUE; Contrast volume: 75 ml; Contrast route: IV; COMPARISON: 1. US TRANSVAGINAL 07/02/2023 3:31 PM 2. US OB FOLLOW UP 12/16/2021 1:23 PM FINDINGS: Liver: There is a low-density lesion in the liver which statistically reflects either a cyst or hemangioma. Otherwise, unremarkable liver parenchyma. Gallbladder and bile ducts: No acute process. Pancreas: Normal. Spleen: Normal. Adrenal glands: The adrenal glands appear normal. Kidneys and ureters: There are no soft tissue renal masses or hydronephrosis. Stomach and bowel: There is large volume stool throughout the colon. Appendix: No evidence of appendicitis. Intraperitoneal space: Unremarkable. Vasculature: The abdominal aorta and its major branches appear normal without evidence of aneurysm or stenosis. There are pelvic phleboliths. Lymph nodes: No lymphadenopathy. Urinary bladder: Unremarkable as visualized. Reproductive: The patient has undergone prior hysterectomy. Bones/joints: The visualized osseous structures of the abdomen and pelvis appear normal for patient age. Soft tissues: There is a small fat containing umbilical hernia. IMPRESSION: No acute inflammatory or obstructive process is identified. Incidental findings are described within the findings section.
--- NOTE | 2023-11-17 16:52 | ED_ITS ---
Discharge Plan Disposition Patient Disposition: Home, Self-Care Condition: Good Prescriptions Prescriptions: No Action No Known Home Medications Referrals Follow up/Referrals: Shashi Mendoza APRN [Primary Care Provider] - See instructions Activity Restrictions/Add. Instructions Additional Instructions/Restrictions: You were evaluated in the emergency department today. Please follow-up with your HERBARIUM CURATOR over the next 3 days. Avoid vaginal penetration or intercourse. Return to the emergency department for new or worsening symptoms. Clinical Impressions Clinical Impression: Abnormal vaginal bleeding Instructions Patient Instructions: DI for Vaginal Hysterectomy Discharge ED Provider: Cris Mcduffie General Adult HPI General Chief complaint: Recheck/Abnormal Lab/Rx Stated complaint: Eight weeks post op , and nonstop bleeding Time Seen by Provider: 11/17/23 16:12 Mode of Arrival: Ambulatory Source of Information: Patient Limitations: No Limitations Description of Symptoms (Recalled from ER Triage Doc. by RN): Patient reports she is 8 weeks post op from hysterectomy. Patient reports she started bleeing on thursday and it has been consistent ever since. Patient contacted Dr. Finney and was advised to come be seen. Patient reports no other symptoms at this time. History of Present Illness HPI narrative: This patient is a 28-year-old female with a history of abnormal uterine bleeding status post total vaginal hysterectomy presenting to the emergency department for evaluation with concern for vaginal bleeding. On medical record review, the patient's surgery was 09/09/2023. She notes that initially postoperatively, she had some light bleeding for approximately 6 weeks. She stated that that stopped, and then she had been doing well until Thursday. Tuesday 11/14 she started having vaginal bleeding that was consistent with a regular period. It was not significantly heavy, and she has not had any passage of large clots or any foul- smelling discharge. She is also had no pain or cramping associated with this. She notes she had sexual intercourse about a week and a half ago, but she has not had intercourse or any vaginal penetration since then. She notes she was advised by her HERBARIUM CURATOR to come in to the emergency department for evaluation. Related Data Home Medications Medication Instructions Recorded Confirmed No Known Home Medications 10/21/23 10/23/23 Allergies Allergy/AdvReac Type Severity Reaction Status Date / Time No Known Allergies Allergy Verified 10/23/23 08:57 [facility] Disclaimer: The information contained in this section may have been updated after the patient was seen, as this information can be updated by other users. 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 PVCs (premature ventricular contractions) Surgical History H/O colposcopy with cervical biopsy H/O tubal ligation History of D&C History of salpingectomy History of vaginal hysterectomy Status post tubal ligation [place] teeth removed Family History Grandmother PCOS (polycystic ovarian syndrome) Other Cancer Social History Smoking Status: Never smoker alcohol intake: never substance use type: denies use current occupational status: employed Travel in the last 8 weeks: None household members: significant other housing: house caffeine: No ROS Obtained: Yes All systems reviewed & no additional complaints except as documented Physical Exam General General appearance: alert and in no apparent distress Head Head exam: atraumatic and normocephalic Eye Eye exam: Present normal appearance, PERRL and EOMI ENT ENT exam: Present normal exam, normal oropharynx, mucous membranes moist and normal external ear exam Neck Neck exam: Present normal inspection, full ROM and trachea midline; Absent tenderness Chest Chest inspection: Present normal inspection and symmetric chest wall rise; Absent tenderness Respiratory Respiratory exam: Present normal lung sounds bilaterally; Absent respiratory distress, wheezes, stridor or accessory muscle use Cardiovascular Cardiovascular exam: Present regular rate and normal rhythm Abdominal Exam Abdominal exam: Present soft; Absent distention, tenderness or guarding External exam: Present normal external exam; Absent lesions, lacerations or ecchymosis Speculum exam: Present vaginal bleeding (scant brown blood in the vaginal vault at the site of surgical wound. Sutures intact without obvious source of bleeding or dehiscence) and other (no pooling or obvious active source of bleeding); Absent foreign body or laceration Extremities Exam Extremities exam: Present normal inspection, full ROM and normal capillary refill; Absent tenderness or edema Back Exam Back exam: Present normal inspection and full ROM; Absent tenderness Neurological Exam Neurological exam: Present alert, oriented X3, CN II-XII intact and normal gait; Absent motor sensory deficit Psychiatric Psychiatric exam: Present normal affect and normal mood Skin Skin exam: Present warm and dry Medical Decision Making Medical Records Medical records reviewed: Yes I reviewed the patient's medical records. Krishan Inquiry Pt receiving controlled substance: No Vital Signs: 11/17/23 16:09 11/17/23 18:08 11/17/23 17:46 Temperature 98.0 F Temperature Source Oral Pulse Rate 76 Pulse Rate [Right Brachial] 83 Respiratory Rate 18 16 Blood Pressure 127/91 H 120/69 Blood Pressure [Right Arm] 145/80 H Blood Pressure Mean 75 Blood Pressure Mean [Right Arm] 101 Blood Pressure Source Automatic Cuff Blood Pressure Source [Right Arm] Automatic Cuff Blood Pressure Position Sitting Blood Pressure Position [Right Arm] Sitting 02 Sat by Pulse Oximetry 98 99 Oxygen Delivery Method Room Air Room Air 11/17/23 18:05 Temperature Temperature Source Pulse Rate Pulse Rate [Right Brachial] Respiratory Rate Blood Pressure 127/91 H Blood Pressure [Right Arm] Blood Pressure Mean 98 Blood Pressure Mean [Right Arm] Blood Pressure Source Blood Pressure Source [Right Arm] Blood Pressure Position Blood Pressure Position [Right Arm] 02 Sat by Pulse Oximetry 99 Oxygen Delivery Method Lab Data Lab results reviewed: Yes I reviewed the patient's lab results. Lab Results 11/17/23 16:19: WBC 5.6, RBC 4.80, Hgb 14.3, Hct 43.4, MCV 90.5, MCH 29.9, MCHC 33.0, RDW 12.8, Plt Count 244, MPV 8.5, Neut % (Auto) 60.6, Lymph % (Auto) 31.1, Wagoner % (Auto) 5.4, Eos % (Auto) 1.8, Baso % (Auto) 1.2, Neut # (Auto) 3.4, Lymph # (Auto) 1.8, Wagoner # (Auto) 0.3, Eos # (Auto) 0.1, Baso # (Auto) 0.1, Sodium 138, Potassium 3.9, Chloride 105, Carbon Dioxide 25, Anion Gap 11.9, BUN 18 H, Creatinine 0.70, Estimated Creat Clear 184, Estimated GFR 100, Est GFR ( Amer) 121, Glucose 92, Calcium 9.4, Total Bilirubin 0.4, AST 31, ALT 25, A lkaline Phosphatase 64, Total Protein 7.8, Albumin 4.8, Globulin 3.0, Albumin/Globulin Ratio 1.6 11/17/23 16:19 11/17/23 16:19 Orders (Tests/Meds): ED MEDICATIONS Discontinued Medications Generic Name Dose Route Start Last Admin Trade Name Thong PRN Reason Stop Dose Admin Iopamidol 75 ml 11/17/23 17:09 11/17/23 17:11 Iopamidol-370 (76%);100ml Bottle IV 11/17/23 17:10 75 ml ONCE ONE Administration Sodium Chloride 10 ml 11/17/23 17:09 11/17/23 17:11 Sodium Chloride 0.9% 10ml Syr (Rad Only) IV 11/17/23 17:10 10 ml ONCE ONE Administration ORDERS Category Date Time Status CT abdomen pelvis w con Stat Cat Scan 11/17/23 16:45 Completed Complete Blood Count Auto Diff Stat Lab 11/17/23 16:19 Completed Comprehensive Metabolic Panel Stat Lab 11/17/23 16:19 Completed Medical Decision Narrative: In summary, this patient is a 28-year-old female presenting to the Emergency Department for evaluation of vaginal bleeding 8 weeks after total vaginal hysterectomy. Differential diagnoses considered include but are not limited to wound dehiscence, vaginal laceration, pelvic organ prolapse, postoperative infection, normal postoperative bleeding. Ruling out the most morbid conditions drove assessment. On exam, the patient is well-appearing. Abdominal exam is benign. On vaginal exam, patient does not have any obvious active source of bleeding and has very scant dark brown blood in the vaginal vault. No pooling, and no wound dehisce nce. workup included CBC and CMP. Labs were normal without acute concerns. I called and had an indirect discussion with the patient's HERBARIUM CURATOR who sent her in, Dr. Finney. We are in agreement with the plan to obtain a CT scan of the abdomen and pelvis to evaluate for intra-abdominal postoperative issue. I independently interpreted CT scan prior to the radiologist read and noted no obvious pelvic o rgan prolapse, internal bleeding, or other concern. Please see their read for final interpretation. Labs were obtained that demonstrated no acutely concerning abnormalities. On reassessment, the patient is resting comfortably with again benign exam. At this time, feel that she is appropriate for discharge with close follow-up with her HERBARIUM CURATOR for reassessment. She was given strict return precautions should her pain or bleeding get worse and she was discharged in stable condition after all questions were answered Critical Care Critical Care Time Critical Care Time: No
[2023-11-17 16:55] LABS: Basophils # 0.1 K/mm3 (0-0.2); Basophils % 1.2 % (0.1-2.0); Eosinophils # 0.1 K/mm3 (0.0-0.4); Eosinophils % 1.8 % (0.1-12.0); Hematocrit 43.4 % (37.0-47.0); Hemoglobin 14.3 g/dL (12.2-16.2); Lymphocytes # 1.8 K/mm3 (0.7-4.5); Lymphocytes % 31.1 % (10-50); Mean Corpuscular Hemoglobin 29.9 pg (27.0-31.2); Mean Corpuscular Volume 90.5 fl (81-99); Mean Platelet Volume 8.5 fl (7.4-10.4); Monocytes # 0.3 K/mm3 (0.1-1.0); Monocytes % 5.4 % (1.7-9.3); Neutrophils # 3.4 K/mm3 (1.8-7.8); Neutrophils % 60.6 % (37.0-80.0); Platelet Count 244 K/mm3 (142-424); Red Cell Distribution Width 12.8 % (11.5-17.5); White Blood Count 5.6 K/mm3 (4.8-10.8)
--- NOTE | 2023-11-17 17:02 | PC.NURSE ---
Pt gone to RAD via wheelchair
[2023-11-17] MEDS: SODIUM CHLORIDE 0.9% 10ML SYR (RAD ONLY) 10 ML IV (17:11)
[2023-11-17] MEDS: IOPAMIDOL-370 (76%);100ML BOTTLE 75 ML IV (17:11)
[2023-11-17 17:46] VITALS: BP 120/69; O2SAT 99
--- NOTE | 2023-11-17 17:57 | PC.NURSE ---
DR WEAVER AT BEDSIDE TO UPDATE PT
[2023-11-17 18:05] VITALS: BP 127/91; O2SAT 99
[2023-11-17 18:08] VITALS: BP 127/91; PULSE 76; RESP 16; TEMP 36.7; O2SAT 99
== END 2023-11-17 18:08 | disposition home or self-care (01) ==
PROVIDERS: Emergency Provider Emergency Medicine; PCP Nurse Practitioner Family
DX: N93.9 Abnormal uterine and vaginal bleeding, unspecified (principal); Z90.710 Acquired absence of both cervix and uterus
CPT/HCPCS: 74177; 80053; 85025; 99284; Q9967

== ENCOUNTER 2025-02-24 21:28 | Observation (INO) | payer BC, SELFPAY ==
--- OUTSIDE RECORDS SUMMARY | 2025-02-03 14:45 | XMS_ITS | Encounter Summary ---
Author Organization [place] [address] Care Team Providers Care Ornamental Iron Worker Helper Name Role Phone Rahel Heard APRN Primary Care Provider [phone] Reason for Visit * Reason Comments Establish Care Annual Exam Encounter Details Date Type Department Care Team (Latest Contact Info) Description 02/03/2025 2:45 PM EDT Office Visit [facility] [address] [place] [address] Rahel Heard, TENTERING MACHINE FEEDER [address] [place], [place] [id number] Annual wellness visit (Primary Dx); Attention deficit hyperactivity disorder (ADHD), predominantly hyperactive type Social History Tobacco Use Types Packs/Day Years Used Date Smoking Tobacco: Never Smokeless Tobacco: Never Alcohol Use Standard Drinks/Week Comments No 0 (1 standard drink = 0.6 oz pur e alcohol) Sexually Active Control Partners Comments Yes Male Comments No Sex and Gender Information Value Date Recorded Sex Assigned at Not on file Legal Sex Female 2:20 AM EDT Gender Identity Not on file Sexual Orientation Not on file documented as of this encounter Last Filed Vital Signs Vital Sign Reading Time Taken Comments Blood Pressure 116/80 02/03/2025 2:34 PM EDT Pulse 127 02/03/2025 2:34 PM EDT Temperature 36.7 C (98.1 F) 02/03/2025 2:34 PM EDT Respiratory Rate 20 02/03/2025 2:34 PM EDT Oxygen Saturation 98% 02/03/2025 2:34 PM EDT Inhaled Oxygen Concentration - - Weight 81.1 kg (178 lb 12.8 oz) 02/03/2025 2:34 PM EDT Height 172.7 cm (5' 8 ) 02/03/2025 2:34 PM EDT Body Mass Index 27.19 02/03/2025 2:34 PM EDT documented in this encounter Functional Status * Is the person deaf or does he/she have serious difficulty hearing? Answer Date of Assessment Author No 05/21/2018 2:16 PM EDT Anuja Savage RN * Is the person blind or does he/she have serious difficulty seeing even when wearing glasses? Answer Date of Assessment Author No 05/21/2018 2:16 PM EDT Anuja Savage RN * Does this person have serious difficulty walking or climbing stairs? Answer Date of Assessment Author No 05/21/2018 2:16 PM EDT Anuja Savage RN * Does this person have difficulty dressing or bathing? Answer Date of Assessment Author No 05/21/2018 2:16 PM EDT Anuja Savage RN * Because of a physical, mental or emotional condition, does this person have difficulty doing errands alone such as visiting a doctor's office or shopping? Answer Date of Assessment Author No 05/21/2018 2:16 PM EDT Anuja Savage RN documented as of this encounter Mental Status * Because of a physical, mental or emotional condition, does this person have serious difficulty concentrating, remembering or making decisions? Answer Entry Date Author No 05/21/2018 2:16 PM EDT Anuja Savage RN documented in this encounter Ordered Prescriptions Prescription Sig Dispense Quantity Refills Last Filled Start Date End Date cloNIDine (CATAPRES) 0.1 mg Oral TabletIndications: attention-deficit hyperactivity disorder Take 1 Tablet by mouth daily. Indications: attention deficit disorder with hyperactivity 30 Tablet 5 documented in this encounter Progress Notes * Rahel Heard APRN - 02/03/2025 2:45 PM EDT Assessment & Plan 1.Wellness. She is up to date on her influenza vaccine and is due for a tetanus booster in March 2028. She has completed the hepatitis B vaccine series. Screening labs have been ordered. 2. Anxiety. She reports that Strattera 80 mg has helped reduce fidgeting but still experiences some anxiety. A prescription for Strattera 80 mg with 6 refills will be provided. After discussion of risks, benefits and possible side effects, will begin clonidine as written. Clonidine 0.1 mg daily will be issued, with instructions to take half a tablet initially due to potential drowsiness at higher doses. If she does not need it on the weekends, she does not have to take it daily. If her symptoms persist or worsen, she is advised to contact the office for potential medication adjustments. Dx/Orders: Diagnoses and all orders for this visit: Annual wellness visit - COMPREHENSIVE METABOLIC PANEL; Future - LIPID SCREEN; Future - TSH REFLEX TO FT4; Future Attention deficit hyperactivity disorder (ADHD), predominantly hyperactive type - cloNIDine (CATAPRES) 0.1 mg Oral Tablet; Take 1 Tablet by mouth daily. Indications: attention deficit disorder with hyperactivity Dispense: 30 Tablet; Refill: 5 Return in about 3 months (around 05/06/2025) for 3 month follow up. Subjective Mikaela Xiao is a 29 y.o. female Chief Complaint Patient presents with [facility] Annual Exam Well Adult: Subjective Diet: regular Exercise: regular Activities of Daily Living: Functional Level: Self-care ADL Limitations: none Social Interaction Screen: Do you have concerns about issues that may impact social interaction such as developmental or behavioral/mental health conditions? no Health Maintenance Due Topic Date Due Annual Wellness Exam Never done COVID-19 Vaccine ( season) Never done Cervical Cancer Screening 07/24/2024 Health Maintenance Topic Date Due Annual Wellness Exam Never done COVID-19 Vaccine () Never done Cervical Cancer Screening 07/24/2024 Influenza Vaccine (Season Ended) 2025 DTaP/TDaP/Td (9 - Td or Tdap) 03/23/2028 Hepatitis B Vaccine Completed Meningococcal B Vaccine Aged Out Pneumococcal Vaccine 0-49 Aged Out Chlamydia Screening Discontinued Immunization History Administered Date(s) Administered DTaP 1995, 01/20/1996, 04/20/1996, 01/05/1997, 04/29/2000 Hepatitis B, Unspecified Formulation 1995, 1995, 06/29/1996 HiB, Unspecified Formulation 1995, 01/20/1996, 04/20/1996, 09/28/1996 IPV 1995, 01/20/1996, 04/20/1996, 04/29/2000 Influenza Vaccine Quadrivalent PF 05/30/2017, 05/21/2018 MMR 09/28/1996, 04/29/2000 Tdap 12/24/2006, 04/12/2014, 03/20/2017, 03/23/2018 Varicella 01/05/1997 Patient Active Problem List Diagnosis BMI 40.0-44.9, adult (HCC) Late care Past Medical History: Diagnosis Date Eczema depression 06/25/2017 Past Surgical History: Procedure Laterality Date DILATION AND CURETTAGE OF UTERUS N/A 04/21/2019 DILATION AND CURETTAGE SUCTION EVACUATION FOR MISCARRIAGE; Surgeon: Murali Laguerre MD; Location: [facility]; Service: Gynecology WISDOM TOOTH EXTRACTION Allergies Allergen Reactions Cat/Feline Products Current Outpatient Medications on File Prior to Visit Medication Sig Dispense Refill Atomoxetine (STRATTERA) 80 mg Oral Capsule Take 80 mg by mouth daily. No current facility-administered medications on file prior to visit. Social History Socioeconomic History Marital status: Tobacco Use Smoking status: Never Smokeless tobacco: Never Vaping Use Vaping status: Never Used Substance and Sexual Activity Alcohol use: No Drug use: No Sexual activity: Yes Partners: Male Family History Problem Relation Age of Onset Asthma Mother Miscarriages / Stillbirths Mother Anesth Problems Mother Hard time waking up from anesthesia. Arthritis Maternal Grandmother High Blood Pressure Maternal Grandmother Heart Disease Maternal Grandmother Arthritis Maternal Grandfather No results found. No results found for this visit on 02/03/25. Patient Care Team: Rahel Heard APRN as PCP - General (Nurse Practitioner) Lab Results Component Value Date WBC 8.3 06/27/2021 HGB 13.9 06/27/2021 HCT 42.1 06/27/2021 PLT 232 06/27/2021 ALT 16 09/20/2019 AST 18 09/20/2019 NA 136 09/20/2019 K 3.4 (L) 09/20/2019 CL 103 09/20/2019 CREATININE 0.64 09/20/2019 BUN 11 09/20/2019 CO2 17 (L) 09/20/2019 GLU 98 09/20/2019 HGBA1C 5.0 06/27/2021 Additional issues addressed today: History of Present Illness The patient presents to establish care with a new primary care provider and with reports of continued fidgeting and difficulty concentrating despite taking Strattera as prescribed. She has been utilizing urgent care services at [facility] in the absence of a family physician. She initiated Strattera therapy approximately 2 months ago, starting with a dose of 40 mg, which was later increased to 80 mg about 25 days ago. This medication has effectively improved her fidgetingsymptoms. She continues to experience anxiety, although it is less severe than before. She describes a persistent sense of worry and anticipatory fear of negative events. She is currently on Strattera 80 mg. PAST SURGICAL HISTORY: Total hysterectomy Tubal ligation SOCIAL HISTORY She has 4 children aged 10, 7, 6, and 3. FAMILY HISTORY The patient reports a family history of diabetes and various types of cancers. Her grandmother has atrial fibrillation. Review of Systems Constitutional: Negative. HENT: Negative. Eyes: Negative. Respiratory: Negative. Gastrointestinal: Negative. Endocrine: Negative. Genitourinary: Negative. Musculoskeletal: Negative. Skin: Negative. Neurological: Negative. Psychiatric/Behavioral: Positive for decreased concentration. Negative for self- injury, sleep disturbance and suicidal ideas. The patient is nervous/anxious. Objective Blood pressure 116/80, pulse (!) 127, temperature 98.1 ??F (36.7 ??C), temperature source Temporal,resp. rate 20, height 5' 8 (1.727 m), weight 178 lb 12.8 oz (81.1 kg), last menstrual period 04/16/2021, SpO2 98%, unknown if currently . Body mass index is 27.19 kg/m??. Physical Exam Vitals reviewed. Constitutional: Appearance: Normal appearance. HENT: Head: Normocephalic and atraumatic. Mouth/Throat: Mouth: Mucous membranes are moist. Eyes: Extraocular Movements: Extraocular movements intact. Conjunctiva/sclera: Conjunctivae normal. Cardiovascular: Rate and Rhythm: Normal rate and regular rhythm. Pulmonary: Effort: Pulmonary effort is normal. Breath sounds: Normal breath sounds. Abdominal: General: Abdomen is flat. Bowel sounds are normal. Palpations: Abdomen is soft. Musculoskeletal: General: Normal range of motion. Cervical back: Normal range of motion and neck supple. Skin: General: Skin is warm and dry. Neurological: General: No focal deficit present. Mental Status: She is alert and oriented to person, place, and time. Psychiatric: Mood and Affect: Mood normal. Behavior: Behavior normal. Thought Content: Thought content normal. Results The provider educated the patient (or legal mechanical service representative) on the use of the ambient listening artificial intelligence tool, [employer]. They were informed that this AI tool processes the conversation to generate a clinical note with the expected benefit of improved accuracy while achieving an improved encounter experience for the patient and provider.?The provider explained that the medical information captured by the AI tool including, but not limited to, diagnoses and treatment plan would be protected in accordance with applicable privacy laws and that all diagnoses and treatment decisions would be made by the provider. The provider explained that the note generated will be reviewed bythe provider for accuracy to minimize potential errors.? The patient was given an opportunity to ask questions and opt out of proceeding with the use of the AI tool. After being informed of such information, the patient (or legal mechanical service representative), and each individual in attendance with the patient, verbally consented to the use of the AI tool. documented in this encounter Plan of Treatment Scheduled Orders Name Type Priority Associated Diagnoses Orde r Schedule COMPREHENSIVE METABOLIC PANEL Lab Routine Annual Wellness Visit 1 Occurrences starting 02/07/2025 until 02/07/2026 LIPID SCREEN Lab Routine Annual Wellness Visit 1 Occurrences starting 02/07/2025 until 02/07/2026 TSH REFLEX TO FT4 Lab Routine Annual Wellness Visit 1 Occurrences starting 02/07/2025 until 02/07/2026 documented as of this encounter Goals Goal Patient Goal Type Associated Problems Recent Progress Patient-Stated? Author Maintain a healthy diet, exercise regularly and maintain an ideal body weight General No Sahra Beauchamp CCMA documented as of this encounter Visit Diagnoses Diagnosis Annual wellness visit- Primary Attention deficit hyperactivity disorder (ADHD), predominantly hyperactive type documented in this encounter Discontinued Medications Medication Sig Discontinue Reason Start Date End Da te vit no.[id number] 27 mg iron- 800 mcg Oral Tablet Take 1 Tablet by mouth daily. Cancelled by 02/03/2025 aspirin (ASPIRIN) 81 mg Oral Tablet, ChewableIndications:BMI 40.0-44.9, adult (HCC) Take 1 Tablet by mouth daily. Cancelled by 09/17/2021 02/03/2025 documented as of this encounter Historical Medications * This list may reflect changes made after this encounter. Atomoxetine (STRATTERA) 80 mg Oral Capsule Take 80 mg by mouth daily. 12/11/2024 02/08/2025 added in this encounter Care Teams Ornamental Iron Worker Helper Relationship Specialty Start Date End Date Rahel Heard, MANUEL [address] [place] [address] PCP - General Nurse Practitioner 02/03/25 documented as of this encounter
--- NOTE | 2025-02-24 21:36 | CT_ITS ---
PROCEDURE INFORMATION: Exam: CT Abdomen And Pelvis With Contrast Exam date and time: 02/24/2025 10:11 PM Age: 29 years old Clinical indication: Nausea and vomiting; Abdominal pain; Additional info: Nausea vomiting diarrhea abdominal pain TECHNIQUE: Imaging protocol: Computed tomography of the abdomen and pelvis with contrast. Radiation optimization: All CT scans at this facility use at least one of these dose optimization techniques: automated exposure control; mA and/or kV adjustment per patient size (includes targeted exams where dose is matched to clinical indication); or iterative reconstruction. Contrast material: ISOVUE; Contrast volume: 75 ml; Contrast route: IV; COMPARISON: CT ABDOMEN PELVIS W CON 11/17/2023 4:57 PM FINDINGS: Liver: Normal. No mass. Gallbladder and biliary ducts: Normal. No calcified stones. No ductal dilation. Pancreas: Normal. No ductal dilation. Spleen: Normal. No splenomegaly. Adrenal glands: Normal. No mass. Kidneys and ureters: No nephroureterolithiasis. No hydronephrosis. Stomach and bowel: Nonobstructive fluid-filled loops of small bowel with mild mucosal thickening/enhancement. Appendix: No evidence of appendicitis. Intraperitoneal space: Unremarkable. No free air. No significant fluid collection. Vasculature: Unremarkable. No abdominal aortic aneurysm. Lymph nodes: Unremarkable. No enlarged lymph nodes. Urinary bladder: Unremarkable as visualized. Reproductive: Unremarkable as visualized. Bones/joints: Unremarkable. No acute fracture. Soft tissues: Unremarkable. IMPRESSION: Nonobstructive fluid-filled small bowel loops with mild mucosal enhancement/thickening. Correlate with symptoms of low-grade viral enteritis.
--- OUTSIDE RECORDS SUMMARY | 2025-02-24 21:37 | XMS_ITS | Clinical Summary ---
Author Organization [facility] Address [address] [place] [id number] Care Team Providers Care Fire Adjuster Name Role Phone Sumit Multani MD Primary Care Provider [phone] Allergies No known active allergies Medications No known medications Active Problems No known active problems Family History Medical History Relation Name Comments No Known Problems Father No Known Problems Maternal Grandfather No Known Problems Maternal Grandmother No Known Problems Mother No Known Problems Paternal Grandfather No Known Problems Paternal Grandmother Relation Name Status Comments Father Maternal Grandfather Maternal Grandmother Mother Paternal Grandfather Paternal Grandmother Social History Tobacco Use Types Packs/Day Years Used Date Smoking Tobacco: Never Smokeless Tobacco: Never Tobacco Cessation:Counseling Given: No Alcohol Use Standard Drinks/Week Comments Never 0 (1 standard drink = 0.6 oz pur e alcohol) AUDIT-C Answer Date Recorded Frequency of Alcohol Consumption Never 06/03/2019 Average Number of Drinks Not on file 019 Frequency of Binge Drinking Not on file 05/16 Comments No Sex and Gender Information Value Date Recorded Sex Assigned at Female 06/03/2019 8:49 AM EDT Legal Sex Female 3:10 PM EDT Gender Identity Female 06/03/2019 8:49 AM EDT Sexual Orientation Straight 06/03/2019 8: 49 AM EDT Last Filed Vital Signs Vital Sign Reading Time Taken Comments Blood Pressure 104/66 06/03/2019 8:35 AM EDT Pulse - - Temperature - - Respiratory Rate - - Oxygen Saturation - - Inhaled Oxygen Concentration - - Weight 115.2 kg (254 lb) 06/03/2019 8:35 AM EDT Height 172.7 cm (5' 8 ) 06/03/2019 8:35 AM EDT Body Mass Index 38.62 06/03/2019 8:35 AM EDT Plan of Treatment Health Maintenance Due Date Last Done Comments Lipid Screening 2015 Cervical Cancer Screening 2016 COVID-19 Vaccine ( season) 2024 Depression Screening 09/14/2024 Influenza Vaccination (Season Ended) 2025 Tetanus Vaccination (Every 10 Years) 03/23/2028 03/23/2018, 03/20/2017, 04/12/2014, Additional history exists HPV Vaccine Aged Out No longer eligi ble based on patient's age to complete this topic Insurance [facility] Care Teams Fire Adjuster Relationship Specialty Start Date End Date Sumit Multani MD PCP - General Internal Medicine 06/03/19
--- OUTSIDE RECORDS SUMMARY | 2025-02-24 21:37 | XMS_ITS | Clinical Summary ---
Author Organization [facility] Address [address] [place] [address] Care Team Providers Care Distribution Collection Operator Name Role Phone Unavailable Primary Care Provider Unavailabl e Social History Tobacco Use Types Packs/Day Years Used Date Smoking Tobacco: Never Assessed Comments Unknown Sex and Gender Information Value Date Recorded Sex Assigned at Not on file Legal Sex Female 1:43 PM EDT Gender Identity Not on file Sexual Orientation Not on file Plan of Treatment Health Maintenance Due Date Last Done Comments [facility]-Depression Screening 1995 [facility]-/Child/Adol SDOH Screenings 1995 [facility]-Varicella Vaccines (2 of 2 - 2-dose childhood series) 1999 01/05/1997 HPV Vaccines (1 - 3-dose series) 2010 [facility]- SDOH Screenings 2013 [facility]-Adult SDOH Screenings 2013 [facility]-Pap Smear 2016 [id number] Vaccine ( season) 2024 [facility]-Influenza Vaccine (Season Ended) 2025 05/21/2018, 05/30/2017 [facility]-DTaP,Tdap,and Td Vaccines (9 - Td or Tdap) 03/23/2028 03/23/2018, 03/20/2017, 04/12/2014, Additional history exists [facility]-Zoster Vaccines (1 of 2) 2045 01/05/1997 [facility]-Hepatitis B Vaccines Completed 996, 1995, 1995 [facility]-HIB Vaccines Completed 09/28/1996, 03/1996, 01/20/1996, Additional history exists [facility]-IPV Vaccines Completed 04/29/2000, 03/1996, 01/20/1996, Additional history exists [facility]-Hepatitis A Vaccines Aged Out No longer eligible based on patient's age to complete this topic [facility]-Pneumococcal Vaccine: Pediatrics (0 to 5 Years) and At-Risk Patients (6 to 49 Years) Aged Out No longer eligible based on patient's age to complete this topic [facility]-Rotavirus Vaccines Aged Out No lo nger eligible based on patient's age to complete this topic Insurance [employer]
--- OUTSIDE RECORDS SUMMARY | 2025-02-24 21:37 | XMS_ITS | Encounter Summary ---
Author Organization [facility] [place] [address] Care Team Providers Care Civil Design Technician Name Role Phone Unavailable Primary Care Provider Unavailabl e Encounter Details Date Type Department Care Team (Latest Contact Info) Description 02/02/2025 Travel Social History Tobacco Use Types Packs/Day Years [...] on file documented as of this encounter Functional Status * Is the person deaf or does he/she have serious difficulty hearing? Answer Date of Assessment Author No 05/21/2018 2:16 PM EDT Anuja Savage, HEATHER * Is the person blind or does he/she have serious difficulty seeing even when wearing glasses? Answer Date of Assessment Author No 05/21/2018 2:16 PM AMPAROT Anuja Savage, HEATHER * Does this person have serious difficulty walking or climbing stairs? Answer Date of Assessment Author No 05/21/2018 2:16 PM Anuja Zhao, HEATHER * Does this person have difficulty dressing or bathing? Answer Date of Assessment Author No 05/21/2018 2:16 PM Anuja Zhao, HEATHER * Because of a physical, mental or emotional condition, does this person have difficulty doing errands alone such as visiting a doctor's office or shopping? Answer Date of Assessment Author No 05/21/2018 2:16 PM Anuja Zhao RN documented as of this encounter Mental Status * Because of a physical, mental or emotional condition, does this person have serious difficulty concentrating, remembering or making decisions? Answer Entry Date Author No 05/21/2018 2:16 PM Anuja Zhao RN documented in this encounter Plan of Treatment Not on file documented as of this encounter Goals Goal Patient Goal Type Associated Problems Recent Progress Patient-Stated? Author Maintain a healthy diet, exercise regularly and maintain an ideal body weight General No Sahra Beauchamp CCMA documented as of this encounter Visit Diagnoses Not on filedocumented in this encounter
--- OUTSIDE RECORDS SUMMARY | 2025-02-24 21:37 | XMS_ITS | Clinical Summary ---
Author Organization [facility] Address [address] [place] [address] Phone Care Team Providers Care Stitch Cleaner Name Role Phone Rahel Heard APRN Primary Care Provider [phone] Allergies Active Allergy Reactions Criticality Noted Date Comments Cat/Feline Products 04/05/2014 Medications cloNIDine (CATAPRES) 0.1 mg Oral TabletIndication s:attention-defi cit hyperactivity disorder Take 1 Tablet by mouth daily. Indications: attention deficit disorder with hyperactivity 30 Tablet 5 025 Active Atomoxetine (STRATTERA) 80 mg Oral Capsule Take 1 capsule by mouth every morning 30 Capsule 025 Active Atomoxetine (STRATTERA) 80 mg Oral Capsule Take 80 mg by mouth daily. 025 2024 Discontinued Active Problems Problem Noted Date Diagnosed Date BMI 40.0-44.9, adult 07/24/2021 Overview (07/24/2021): Growth US 28 32 36 Late care 07/24/2021 Overview (07/24/2021): Began care at 14.1 wks Resolved Problems Problem Noted Date Diagnosed Date Resolved Date Episode of dizziness 10/02/2021 022 Overview (10/02/2021): CBC + TSH ordered @ 24.1---> Supervision of other normal , antepartum 07/04/2021 10/16/2021 Overview (10/02/2021): CNM pt PNL: nml GS: low risk NIPT GURPREET of 01/21/22 by LMP and US Genetics: low risk female; horizon screening: negative Anatomy: WNL; posterior placenta Missed 04/19/2019 05/21/2019 (normal spontaneous vaginal delivery) 05/19/2018 06/01/2018 Overview (05/19/2018): VMI Sherin Circ BMI 37.0-37.9, adult 12/01/2017 021 Overview (12/07/2017): HgbA1c 5.1 depression 06/25/20172020 Overview (05/21/2018): D/c'd from hosp with zoloft rx Patient and family concerned at time of d/c, enc to call with any concerns Encounters Date Type Department Care Team Description 02/07/2025 Refill [facility] [place] [phone] Rahel Heard APRN Medication Refill 02/03/2025 2:45 PM EDT Office Visit [facility] [place] [phone] Rahel Heard APRN Annual wellness visit (Primary Dx); Attention deficit hyperactivity disorder (ADHD), predominantly hyperactive type 02/02/2025 Travel from Last 3 Months Immunizations Immunization Administration Dates Next Due DTaP 04/29/2000, 7,04/20/1996,1995,1995 Hepatitis B, Unspecified Formulation 06/29/1996, 1995,1995 HiB, Unspecified Formulation 09/28/1996, 04/20/1996,01/20/1996,1995 IPV 04/29/2000, 6,01/20/1996,1995 Influenza Vaccine Quadrivalent PF 2017,05/19/2018(Deferred: Other - will give after delivery),05/30/2017 MMR 04/29/2000,09/28/1996 Tdap 03/23/2018, 7,04/12/2014,2006 Varicella 01/05/1997 Surgical History Surgery Date Site/Laterality Comments WISDOM TOOTH EXTRACTION DILATION AND CURETTAGE OF UTERUS 04/21/2019 N/A DILATION AND CURETTAGE SUCTION EVACUATION FOR MISCARRIAGE; Surgeon: Murali Laguerre MD; Location: [facility]; Service: Gynecology Medical History Medical History Date Comments Eczema depression 06/25/2017 Family History Medical History Relation Name Comments Arthritis Maternal Grandfather Arthritis Maternal Grandmother Heart Disease Maternal Grandmother High Blood Pressure Maternal Grandmother Anesth Problems Mother Hard time wa miracle up from anesthesia. Asthma Mother Miscarriages / Stillbirths Mother Relation Name Status Comments Father Alive Maternal Grandfather Alive Maternal Grandmother Alive Mother Alive Paternal Grandfather Alive Paternal Grandmother Social History Tobacco Use Types Packs/Day Years Used Date Smoking Tobacco: Never Smokeless Tobacco: Never Tobacco Cessation:Counseling Given: Yes Alcohol Use Standard Drinks/Week Comments No 0 (1 standard drink = 0.6 oz pur e alcohol) Sexually Active Control Partners Comments Yes Male Comments No Sex and Gender Information Value Date Recorded Sex Assigned at Not on file Legal Sex Female 2:20 AM EDT Gender Identity Not on file Sexual Orientation Not on file Obstetrics History Para Term AB IAB SAB Ectopic Multiple Livin g Live Births 5 3 3 1 1 0 3 3 Date Outcome GA Total Labor Labor/2nd/3rd Weight Sex Type Anes PTL Myriam A1 A5 Name Clin 2013 Term 37w 3d 6 lb 3.8 oz (2.829 kg) F Vag-S pont Epidur al N Livin g 9 9 HURT, MIKAELA BABY A [address], Javier Frey MD Delivery Location:[facility] Comments:none observed 2016 Term 38w 3d 0h 12m 0h 12m 7 lb 9.7 oz (3.45 kg) M Vag-S pont Epidur al Livin g 9 9 CRITT ENDON ,BHUMI Y BABY Yoseph , Lety [place], CN Delivery Location:[facility] ([facility] 2017 Term 38w 4d 0h 10m 0h 10m 6 lb 12.6 oz (3.08 kg) M Vag-S pont Epidur al N Livin g 8 9 CRITT ENDON ,BHUMI Y BOY Yoseph , Lety [place], CN Delivery Location:[facility] ([facility]) Comments:Spontaneous p lacental delivery w/ manual removal of placental fragments; 800 cytotec recal; 2019 SAB Last Filed Vital Signs Vital Sign Reading [...] Mass Index 27.19 02/03/2025 2:34 PM EDT Plan of Treatment Health Maintenance Due Date Last Done Comments COVID-19 Vaccine ( season) 2024 Cervical Cancer Screening 07/24/2024 Pap Smear 07/24/2024 07/24/2021, 03/2 , 10/15/2016, Additional history exists Influenza Vaccine (Season Ended) 2025 05/21/2018, 05/30/2017 Annual Wellness Exam 02/03/2026 02/03/2025 DTaP/TDaP/Td (9 - Td or Tdap) 03/23/2028 03/23/2018, 03/20/2017, 04/12/2014, Additional history exists Hepatitis B Vaccine Completed 06/29/1996, 1995, 1995 Chlamydia Screening Discontinued 07/24/2021, 11/02/2020, 2019, Additional history exists Meningococcal B Vaccine Aged Out No l onger eligible based on patient's age to complete this topic Pneumococcal Vaccine 0-49 Aged Out No longer eligible based on patient's age to complete this topic Goals Goal Patient Goal Type Associated Problems Recent Progress Patient-Stated? Author Maintain a healthy diet, exercise regularly and maintain an ideal body weight General No Sahra Beauchamp, [facility] Procedures Procedure Name Priority Date/Time Associated Diagnosis Comments GC CHLAMYDIA THIN PREP Routine 07/24/2021 9:32 AM EST Encounter for supervision of other normal in second trimester MANAGER UNIVERSITY CYTOLOGY REQUEST (PAP ONLY) Routine 07/24/2021 9:32 AM EST Encounter for supervision of other normal in second trimester from Last 3 Months or Most Recently Relevant to Health Maintenance Results * MANAGER UNIVERSITY CYTOLOGY REQUEST (PAP ONLY) (07/24/2021 9:32 AM EST) CASE REPORT Gynecologic Cytology Report Case: [id number] Authorizing Provider: Sakshi Sutton APRN Collected: 07/24/2021 0932 Ordering Location: [facility] Received: 07/24/2021 0932 First Screen: Kari Sellers CT Specimen: LIQUID-BASED PAP - CERVICAL/ENDOCERV ICAL, Cervix, Endocervical 07/26/2021 2:40 PM EST [facility] PAP FINAL DIAGNOSIS Negative for intraepithelial lesion or malignancy 07/26/2021 2:40 PM EST [facility] at 1440 EST MICROSCOPIC DESCRIPTION Microscopic examination is performed and the findings corroborate the diagnosis. 07/26/2021 2:40 PM EST [facility] PAP SMEAR ADEQUACY Satisfactory for evaluation 07/26/2021 2:40 PM EST [facility] ENDOCERVICAL T-ZONE Transformation zone present 07/26/2021 2:40 PM EST [facility] EMBEDDED IMAGES 2:40 PM EST [facility] PAP DISCLAIMER The Pap Smear is a screening test that aids in the detection of cervical cancer and cancer precursors. Both false positive and false negative results can occur. The test should be used at regular intervals, and positive results should be confirmed before definitive therapy. Processed using the ThinPrep Certified Phlebotomy Technician Automated cytology screening device (Greendizer). 07/26/2021 2:40 PM EST [facility] Thin Prep ENDOCERVICAL STRUCTURE / Unknown 07/24/2021 9:32 AM EST 07/24/2021 9:32 AM EST Sakshi Sutton SORT MANAGER CYTOLOGY ORDERABLES Final Result [facility] [address] [place] [id number] * GC CHLAMYDIA THIN PREP (07/24/2021 9:32 AM EST) Chlamydia trachomatis Not Detected Not Detected 07/25/2021 5:57 PM EST PREFERRED LAB [facility] Neisseria gonorrhoeae Not Detected Not Detected 07/25/2021 5:57 PM EST PREFERRED [facility] Thin Prep SPECIMEN FROM UTERINE CERVIX / Unknown 07/24/2021 9:32 AM EST 07/24/2021 9:32 AM EST Narrative PREFERRED [facility] - 07/25/2021 5:57 PM EST Testing methodology is traffic representative mediated amplification (TMA) using the Aptima Combo 2 assay from [employer]. A negative result does not completely rule out a Chlamydia trachomatis or Neisseria gonorrhoeae infection due to potential inhibitors or levels present below the limit of detection by this assay. Results are dependent on proper collection and transport of specimen. This test is indicated for medical purposes only and should not be used for legal or forensic purposes. The performance characteristics of this assay were validated by the testing laboratory. This assay is FDA cleared to test the following specimens: clinician-collected endocervical, vaginal, male urethral swab specimens, rectal swabs, and throat/pharyngeal swabs; patient collected vaginal specimens within a clinic setting; Thin Prep Specimens in [employer]erv[employer]yt [employer]; and first-stream, unpreserved male and female urine specimens. Detailed methodology is available upon request. Sakshi Sutton APRN MICROBIOLOGY - GENERAL OR DERABLES Final Result PREFERRED LAB [facility] [place] [address] from Last 3 Months or Most Recently Relevant to Health Maintenance Insurance ANTH PPO * Guarantor: Mikaela Xiao Account Type Relation to Patient Date of Phone Billing Address [place] Personal Family Self Advance Directives For more information, please contact: [phone] * Full Code (Latest Code Status on File) Date Activated Date Inactivated Comments 05/19/2018 12:29 PM 05/21/2018 7:50 PM * Full Code Date Activated Date Inactivated Comments 05/29/2017 6:02 PM 06/01/2017 1:21 AM * Full Code Date Activated Date Inactivated Comments 04/23/2014 10:46 PM 04/26/2014 4:27 PM Care Teams Stitch Cleaner Relationship Specialty Start Date End Date Rahel [place] [address] [place] [address] PCP - General Nurse Practitioner 02/03/25
--- OUTSIDE RECORDS SUMMARY | 2025-02-24 21:37 | XMS_ITS | Encounter Summary ---
Author Organization [place] [address] Care Team Providers Care Test Borer Name Role Phone Rahel Heard APRN Primary Care Provider [phone] Reason for Visit * Reason Comments Medication Refill Encounter Details Date Type Department Care Team (Late st Contact Info) Description 02/07/2025 Refill [facility] [address] [place] [address] Rahel Heard APRN [address] [place], [place] [id number] Medication Refill Social History Tobacco Use Types Packs/Day Years [...] No 05/21/2018 2:16 PM Anuja Zhao RN * Does this person have serious difficulty walking or climbing stairs? Answer Date of Assessment Author No 05/21/2018 2:16 PM Anuja Zhao RN * Does this person have difficulty dressing or bathing? Answer Date of Assessment Author No 05/21/2018 2:16 PM Anuja Zhao RN * Because of a physical, mental [...] Anuja Zhao RN documented in this encounter Ordered Prescriptions Prescription Sig Dispense Quantity Refills Last Filled Start Date End Date Atomoxetine (STRATTERA) 80 mg Oral Capsule Take 1 capsule by mouth every morning 30 Capsule 02/08/2025 documented in this encounter Plan of Treatment Not on file documented as of this encounter Goals Goal Patient Goal Type Associated Problems Recent Progress Patient-Stated? Author Maintain a healthy diet, exercise regularly and maintain an ideal body weight General No Sahra Beauchamp CCMA documented as of this encounter Visit Diagnoses Not on filedocumented in this encounter Discontinued Medications Medication Sig Discontinue Reason Start Date End Da te Atomoxetine (STRATTERA) 80 mg Oral Capsule Take 80 mg by mouth daily. 12/11/2024 02/08/2025 documented as of this encounter Care Teams Test Borer Relationship Specialty Start Date End Date Rahel Heard APRN [address] [place] [address] PCP - General Nurse Practitioner 02/03/25 documented as of this encounter
--- NOTE | 2025-02-24 21:39 | ED_ITS ---
Discharge Plan Disposition Patient Disposition: Admitted Clinical Impressions Clinical Impression: Nausea & vomiting, Alkalosis Discharge ED Provider: Ulises Sheehan General Adult HPI <AYAD Beauchamp - Last Filed: 02/24/25 22:15> General Chief complaint: Nausea/Vomiting/Diarrhea Stated complaint: vomiting,hands and feet numb,abd pain Time Seen by Provider: 02/24/25 21:38 History of Present Illness HPI narrative: Patient presents for evaluation of nausea vomiting diarrhea and paresthesias. Patient started semaglutide in the last day or so and today has had nausea vomiting abdominal pain and diarrhea. She began having paresthesias with leg and hand cramping this evening which prompted her visit to the emergency department. She denies any fever chills hemoptysis hematochezia melena hematemesis hematuria dysuria. Related Data Home Medications ?Medication ?Instructions ?Recorded ?Confirmed cetirizine 10 mg tablet 10 mg PO DAILY PRN 12/07/23 01/04/24 Previous Rx's ?Medication ?Instructions ?Recorded montelukast 10 mg tablet 10 mg PO DAILY #30 tabs 11/13 02/04 bupropion HCl 150 mg 24 hr tablet, 150 mg PO DAILY #30 tabs 01/04/24 extended release buspirone 10 mg tablet 10 mg PO TID PRN anxiety #90 tabs 01/04/24 Allergies Allergy/AdvReac Type Severity Reaction Status Date / Time No Known Allergies Allergy Verified 01/04/24 10:17 PFSH <AYAD Beauchamp - Last Filed: 02/24/25 22:15> [facility] Disclaimer: The information contained in this section may have been updated after the patient was seen, as this information can be updated by other users. 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 PVCs (premature ventricular contractions) History of depression Surgical History History of salpingectomy History of vaginal hysterectomy H/O colposcopy with cervical biopsy History of D&C [place] teeth removed H/O tubal ligation Status post tubal ligation Family History Grandmother PCOS (polycystic ovarian syndrome) Other Cancer Social History Smoking Status: Never smoker alcohol intake: never substance use type: denies use current occupational status: employed (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.) Travel in the last 8 weeks?: None household members: significant other housing: house number of children: 4 caffeine: No Have you lived/traveled outside US in past 30 days?: No Contact w/someone who lives/traveled outside US past 30 days?: No Exposure to someone with infectious disease in past 14 days?: No Do you have a fever (greater than 100.4 F or 38 C)?: No Have you tested positive for COVID-19?: No Exposed to someone with COVID-19 in past 14 days?: No Do you have a sore throat?: No Do you have a cough?: No Do you have any weakness?: No Do you have any diarrhea?: No Are you experiencing any unusual bleeding?: No Do you have any muscle aches/pain?: No Do you have any abdominal pain?: No Are you experiencing loss of taste or smell?: No Other Medical History Have you received the Flu Vaccine for this season: No Have you received the Pneumonia Vaccine: No <AYAD Beauchamp - Last Filed: 02/24/25 22:15> ROS Obtained: Yes Systems reviewed as appropriate & no additional complaints except as documented Physical Exam <AYAD Beauchamp - Last Filed: 02/24/25 22:15> General General appearance: alert and in no apparent distress Respiratory Respiratory exam: Present normal lung sounds bilaterally Cardiovascular Cardiovascular exam: Present regular rate Neurological Exam Neurological exam: Present alert and oriented X3 Medical Decision Making <AYAD Beauchamp - Last Filed: 02/24/25 22:15> Medical Records Medical records reviewed: Yes I reviewed the patient's medical records. Screening: Per USPSTF and CDC recommendations, given the prevalence of disease in our region, it is our hospital?s policy to screen for HIV and viral Hepatitis for all patients aged 18 and over and those with ongoing risk factors. Krishan Inquiry Pt receiving controlled substance: No Vital Signs: 02/24/25 21:46 02/24/25 22:01 02/24/25 22:31 Temperature 98.5 F Temperature Source Oral Pulse Rate 58 L 50 L Pulse Rate [Apical] 95 H Respiratory Rate 38 H 30 H 13 Blood Pressure 126/72 110/65 Blood Pressure [Right Arm] 132/87 Blood Pressure Mean [Right Arm] 102 Blood Pressure Source [Right Arm] Automatic Cuff Blood Pressure Position [Right Arm] Sitting 02 Sat by Pulse Oximetry 100 100 100 Oxygen Delivery Method Room Air 02/24/25 23:01 02/24/25 23:17 02/24/25 23:30 Temperature Temperature Source Pulse Rate 66 65 62 Pulse Rate [Apical] Respiratory Rate 28 H 21 32 H Blood Pressure 114/69 108/66 L 118/73 Blood Pressure [Right Arm] Blood Pressure Mean [Right Arm] Blood Pressure Source [Right Arm] Blood Pressure Position [Right Arm] 02 Sat by Pulse Oximetry 96 100 100 Oxygen Delivery Method 02/25/25 00:00 Temperature Temperature Source Pulse Rate 77 Pulse Rate [Apical] Respiratory Rate 36 H Blood Pressure 110/71 Blood Pressure [Right Arm] Blood Pressure Mean [Right Arm] Blood Pressure Source [Right Arm] Blood Pressure Position [Right Arm] 02 Sat by Pulse Oximetry 100 Oxygen Delivery Method Lab Data Lab results reviewed: Yes I reviewed the patient's lab results. Lab Results 02/24/25 21:38: WBC 9.4, RBC 5.14, Hgb 15.1, Hct 43.8, MCV 85.2, MCH 29.4, MCHC 34.5, RDW 12.1, Plt Count 310, MPV 10.1, Neut % (Auto) 84.8 H, Lymph % (Auto) 10.9, [place] % (Auto) 3.6, Eos % (Auto) 0.1, Baso % (Auto) 0.4, Neut # (Auto) 8.0 H, Lymph # (Auto) 1.0, [place] # (Auto) 0.3, Eos # (Auto) 0.0, Baso # (Auto) 0.0, Sodium 136, Potassium 5.2 H, Chloride 105, Carbon Dioxide 23, Anion Gap 13.2, BUN 13, Creatinine 0.70, Estimated Creat Clear 153, Estimated GFR 99, Est GFR ( Amer) 120, Glucose 124 H, Calcium 11.4 H, Magnesium 2.0, Total Bilirubin 1.2, AST 37 H, ALT 30, Alkaline Phosphatase 84, Total Protein 8.5 H, Albumin 5.0, Globulin 3.5 H, Albumin/Globulin Ratio 1.4, Lipase 145, Procalcitonin < 0.030, HCV Ab LUZ MARIA w/Rflx PCR Qn Negative, HIV Ag/Ab Combo Qual Negative 02/24/25 21:49: VBG pH 7.47 H, VBG pCO2 28.8 L, VBG pO2 20.8 L, VBG HCO3 20.4 L, VBG Total CO2 21.3 L, VBG O2 Saturation 41.2 L, VBG Base Excess -3.3 L, VBG Lactic Acid 5.5 H 02/24/25 23:14: Urine Color Yellow, Urine Appearance Clear, Urine pH 7.5, Ur Specific [place] 1.010, Urine Protein Negative, Urine Glucose (UA) Negative, Urine Ketones 3+, Urine Blood Negative, Urine Nitrate Negative, Urine Bilirubin Negative, Urine Urobilinogen 0.2, Ur Leukocyte Esterase Negative, Urine RBC 3-5, Urine WBC 5-10, Ur Squamous Epith Cells 10-20, Urine Bacteria 3+, Urine Mucus 2+, Urine HCG, Qual Negative 02/24/25 23:28: Potassium 3.3 L D 02/24/25 23:29: VBG pH 7.55 H, VBG pCO2 20.9 L, VBG pO2 53.1 H, VBG HCO3 17.8 L, VBG Total CO2 18.4 L, VBG O2 Saturation 91.8 H, VBG Base Excess -4.7 L, VBG Lactic Acid 3.7 H 02/24/25 21:38 02/24/25 23:28 Orders (Tests/Meds): ED MEDICATIONS Generic Name Dose Route Start Last Admin Trade Name Freq PRN Reason Stop Dose Admin Metoclopramide HCl 10 mg 02/25/25 00:00 02/25/25 00:05 Metoclopramide 10mg Tablet PO 02/25/25 00:01 10 mg ONCE ONE Administration Sodium Chloride 10 ml 02/24/25 22:13 02/24/25 22:14 Sodium Chloride 0.9% 10ml Syr (Rad Only) IV 03/26/25 22:12 10 ml NEEDED PRN Administration Maintain IV Site Discontinued Medications Generic Name Dose Route Start Last Admin Trade Name Thong PRN Reason Stop Dose Admin Acetaminophen 1,000 mg 02/24/25 21:36 02/24/25 22:01 Acetaminophen 1,000mg/100ml Vial IV 02/24/25 21:37 1,000 mg ONCE ONE Administration Belladonna Alkaloids 60 ml 02/24/25 22:58 02/24/25 23:03 Belladonna Alkaloids 60 Ml Ml PO 02/24/25 22:59 60 ml ONCE ONE Administration Lactated Ringer's 1,000 mls @ 999 mls/hr 02/24/25 21:36 02/24/25 22:00 Lactated Ringer's 1000 Ml Bag IV 02/24/25 22:36 999 mls/hr .Q1H1M ONE Administration Magnesium Sulfate 2 gm in 50 mls @ 50 mls/hr 02/24/25 21:39 02/24/25 22:00 Magnesium Sulfate 2gm/50ml Premix IV 02/24/25 22:38 50 mls/hr ONCE ONE Administration Iopamidol 75 ml 02/24/25 22:13 02/24/25 22:14 Iopamidol-370 (76%);100ml Bottle IV 02/24/25 22:14 75 ml ONCE ONE Administration Ketorolac Tromethamine 15 mg 02/24/25 21:36 02/24/25 22:00 Ketorolac 30mg/Ml Vial IV 02/24/25 21:37 15 mg ONCE ONE Administration Ondansetron HCl 4 mg 02/24/25 21:36 02/24/25 22:00 Ondansetron 4mg/2ml Vial IV 02/24/25 21:37 4 mg ONCE ONE Administration Promethazine HCl 25 mg 02/24/25 22:58 02/24/25 23:03 Promethazine 25mg Tablet PO 02/24/25 22:59 25 mg ONCE ONE Administration ORDERS Category Date Time Status CT abdomen pelvis w con Stat Cat Scan 02/24/25 21:36 Completed CBC w/Auto Diff [Complete Blood Count Auto Diff] Stat Lab 02/24/25 21:38 Completed CMP [Comprehensive Metabolic Panel] Stat Lab 02/24/25 21:38 Completed HIV Combo Stat Lab 02/24/25 21:38 Completed Hepatitis C Ab Qual. W/ RFX Stat Lab 02/24/25 21:38 Completed Lipase Stat Lab 02/24/25 21:38 Completed Magnesium Stat Lab 02/24/25 21:38 Completed Potassium Stat Lab 02/24/25 23:28 Completed Procalcitonin Stat Lab 02/24/25 21:38 Completed UA [Urinalysis and Microscopic] Stat Lab 02/24/25 23:14 Completed Urine , HCG Qual. Stat Lab 02/24/25 23:14 Completed Urine Culture Stat Micro 02/24/25 23:14 Received VBG [Venous Blood Gas] Stat RT 02/24/25 21:49 Completed VBG [Venous Blood Gas] Stat RT 02/24/25 23:29 Completed Medical Decision Narrative: In summary patient is a 9-year-old female who presents to the emergency department for evaluation of nausea vomiting abdominal pain paresthesias. Patient is normotensive on arrival with a blood pressure 132/87 heart rate is 95 with sinus rhythm on the bedside monitor patient is tachypneic with a rate of 38 satting at 100% room air upon arrival, afebrile at 98.5. Physical exam is remarkable for clear breath sounds although she is hyperventilating patient has no chest wall tenderness breath sounds are clear and equal bilaterally to the bases, abdomen is soft no tenderness on exam rebound or guarding or rigidity bowel sounds normal active.. Differential diagnosis includes hyperventilation syndrome versus electrolyte abnormality versus GLP-1 adverse reaction possibly pancreatitis versus side effect etc. Initial workup will be conducted with hematologic labs urinalysis urine CT scan abdomen pelvis. Initial interventions include crystalloid bolus Toradol Tylenol Zofran. Initial workup ordered and pending at the time of handoff to Dr. Sheehan at 2200 hrs. <Ulises Sheeahn MD - Last Filed: 02/24/25 23:25> Vital Signs: 02/24/25 21:46 02/24/25 22:01 02/24/25 22:31 Temperature 98.5 F Temperature Source Oral Pulse Rate 58 L 50 L Pulse Rate [Apical] 95 H Respiratory Rate 38 H 30 H 13 Blood Pressure 126/72 110/65 Blood Pressure [Right Arm] 132/87 Blood Pressure Mean [Right Arm] 102 Blood Pressure Source [Right Arm] Automatic Cuff Blood Pressure Position [Right Arm] Sitting 02 Sat by Pulse Oximetry 100 100 100 Oxygen Delivery Method Room Air 02/24/25 23:01 02/24/25 23:17 02/24/25 23:30 Temperature Temperature Source Pulse Rate 66 65 62 Pulse Rate [Apical] Respiratory Rate 28 H 21 32 H Blood Pressure 114/69 108/66 L 118/73 Blood Pressure [Right Arm] Blood Pressure Mean [Right Arm] Blood Pressure Source [Right Arm] Blood Pressure Position [Right Arm] 02 Sat by Pulse Oximetry 96 100 100 Oxygen Delivery Method 02/25/25 00:00 Temperature Temperature Source Pulse Rate 77 Pulse Rate [Apical] Respiratory Rate 36 H Blood Pressure 110/71 Blood Pressure [Right Arm] Blood Pressure Mean [Right Arm] Blood Pressure Source [Right Arm] Blood Pressure Position [Right Arm] 02 Sat by Pulse Oximetry 100 Oxygen Delivery Method Lab Data Lab Results 02/24/25 21:38: WBC 9.4, RBC 5.14, Hgb 15.1, Hct 43.8, MCV 85.2, MCH 29.4, MCHC 34.5, RDW 12.1, Plt Count 310, MPV 10.1, Neut % (Auto) 84.8 H, Lymph % (Auto) 10.9, [place] % (Auto) 3.6, Eos % (Auto) 0.1, Baso % (Auto) 0.4, Neut # (Auto) 8.0 H, Lymph # (Auto) 1.0, [place] # (Auto) 0.3, Eos # (Auto) 0.0, Baso # (Auto) 0.0, Sodium 136, Potassium 5.2 H, Chloride 105, Carbon Dioxide 23, Anion Gap 13.2, BUN 13, Creatinine 0.70, Estimated Creat Clear 153, Estimated GFR 99, Est GFR ( Amer) 120, Glucose 124 H, Calcium 11.4 H, Magnesium 2.0, Total Bilirubin 1.2, AST 37 H, ALT 30, Alkaline Phosphatase 84, Total Protein 8.5 H, Albumin 5.0, Globulin 3.5 H, Albumin/Globulin Ratio 1.4, Lipase 145, Procalcitonin < 0.030, HCV Ab LUZ MARIA w/Rflx PCR Qn Negative, HIV Ag/Ab Combo Qual Negative 02/24/25 21:49: VBG pH 7.47 H, VBG pCO2 28.8 L, VBG pO2 20.8 L, VBG HCO3 20.4 L, VBG Total CO2 21.3 L, VBG O2 Saturation 41.2 L, VBG Base Excess -3.3 L, VBG Lactic Acid 5.5 H 02/24/25 23:14: Urine Color Yellow, Urine Appearance Clear, Urine pH 7.5, Ur Specific [place] 1.010, Urine Protein Negative, Urine Glucose (UA) Negative, Urine Ketones 3+, Urine Blood Negative, Urine Nitrate Negative, Urine Bilirubin Negative, Urine Urobilinogen 0.2, Ur Leukocyte Esterase Negative, Urine RBC 3-5, Urine WBC 5-10, Ur Squamous Epith Cells 10-20, Urine Bacteria 3+, Urine Mucus 2+, Urine HCG, Qual Negative 02/24/25 23:28: Potassium 3.3 L D 02/24/25 23:29: VBG pH 7.55 H, VBG pCO2 20.9 L, VBG pO2 53.1 H, VBG HCO3 17.8 L, VBG Total CO2 18.4 L, VBG O2 Saturation 91.8 H, VBG Base Excess -4.7 L, VBG Lactic Acid 3.7 H Orders (Tests/Meds): ED MEDICATIONS Generic Name Dose Route Start Last Admin Trade Name Freq PRN Reason Stop Dose Admin Metoclopramide HCl 10 mg 02/25/25 00:00 02/25/25 00:05 Metoclopramide 10mg Tablet PO 02/25/25 00:01 10 mg ONCE ONE Administration Sodium Chloride 10 ml 02/24/25 22:13 02/24/25 22:14 Sodium Chloride 0.9% 10ml Syr (Rad Only) IV 03/26/25 22:12 10 ml NEEDED PRN Administration Maintain IV Site Discontinued Medications Generic Name Dose Route Start Last Admin Trade Name Freq PRN Reason Stop Dose Admin Acetaminophen 1,000 mg 02/24/25 21:36 02/24/25 22:01 Acetaminophen 1,000mg/100ml Vial IV 02/24/25 21:37 1,000 mg ONCE ONE Administration Belladonna Alkaloids 60 ml 02/24/25 22:58 02/24/25 23:03 Belladonna Alkaloids 60 Ml Ml PO 02/24/25 22:59 60 ml ONCE ONE Administration Lactated Ringer's 1,000 mls @ 999 mls/hr 02/24/25 21:36 02/24/25 22:00 Lactated Ringer's 1000 Ml Bag IV 02/24/25 22:36 999 mls/hr .Q1H1M ONE Administration Magnesium Sulfate 2 gm in 50 mls @ 50 mls/hr 02/24/25 21:39 02/24/25 22:00 Magnesium Sulfate 2gm/50ml Premix IV 02/24/25 22:38 50 mls/hr ONCE ONE Administration Iopamidol 75 ml 02/24/25 22:13 02/24/25 22:14 Iopamidol-370 (76%);100ml Bottle IV 02/24/25 22:14 75 ml ONCE ONE Administration Ketorolac Tromethamine 15 mg 02/24/25 21:36 02/24/25 22:00 Ketorolac 30mg/Ml Vial IV 02/24/25 21:37 15 mg ONCE ONE Administration Ondansetron HCl 4 mg 02/24/25 21:36 02/24/25 22:00 Ondansetron 4mg/2ml Vial IV 02/24/25 21:37 4 mg ONCE ONE Administration Promethazine HCl 25 mg 02/24/25 22:58 02/24/25 23:03 Promethazine 25mg Tablet PO 02/24/25 22:59 25 mg ONCE ONE Administration ORDERS Category Date Time Status CT abdomen pelvis w con Stat Cat Scan 02/24/25 21:36 Completed CBC w/Auto Diff [Complete Blood Count Auto Diff] Stat Lab 02/24/25 21:38 Completed CMP [Comprehensive Metabolic Panel] Stat Lab 02/24/25 21:38 Completed HIV Combo Stat Lab 02/24/25 21:38 Completed Hepatitis C Ab Qual. W/ RFX Stat Lab 02/24/25 21:38 Completed Lipase Stat Lab 02/24/25 21:38 Completed Magnesium Stat Lab 02/24/25 21:38 Completed Potassium Stat Lab 02/24/25 23:28 Completed Procalcitonin Stat Lab 02/24/25 21:38 Completed UA [Urinalysis and Microscopic] Stat Lab 02/24/25 23:14 Completed Urine , HCG Qual. Stat Lab 02/24/25 23:14 Completed Urine Culture Stat Micro 02/24/25 23:14 Received VBG [Venous Blood Gas] Stat RT 02/24/25 21:49 Completed VBG [Venous Blood Gas] Stat RT 02/24/25 23:29 Completed Medical Decision Narrative: In summary patient is a 9-year-old female who presents to the emergency department for evaluation of nausea vomiting abdominal pain paresthesias. Patient is normotensive on arrival with a blood pressure 132/87 heart rate is 95 with sinus rhythm on the bedside monitor patient is tachypneic with a rate of 38 satting at 100% room air upon arrival, afebrile at 98.5. Physical exam is remarkable for clear breath sounds although she is hyperventilating patient has no chest wall tenderness breath sounds are clear and equal bilaterally to the bases, abdomen is soft no tenderness on exam rebound or guarding or rigidity bowel sounds normal active.. Differential diagnosis includes hyperventilation syndrome versus electrolyte abnormality versus GLP-1 adverse reaction possibly pancreatitis versus side effect etc. Initial workup will be conducted with hematologic labs urinalysis urine CT scan abdomen pelvis. Initial interventions include crystalloid bolus Toradol Tylenol Zofran. Initial workup ordered and pending at the time of handoff to Dr. Sheehan at 2200 hrs. Ulises Sheehan MD MANUEL: I assumed care of this patient from the [facility]. Upon repeat evaluation patient still in tolerating p.o. intake. CT imaging with no surgical pathology. Additional antiemetic ordered. Care was transferred to incoming physician. <Angel Real MD - Last Filed: 02/25/25 00:39> Vital Signs: 02/24/25 21:46 02/24/25 22:01 02/24/25 22:31 Temperature 98.5 F Temperature Source Oral Pulse Rate 58 L 50 L Pulse Rate [Apical] 95 H Respiratory Rate 38 H 30 H 13 Blood Pressure 126/72 110/65 Blood Pressure [Right Arm] 132/87 Blood Pressure Mean [Right Arm] 102 Blood Pressure Source [Right Arm] Automatic Cuff Blood Pressure Position [Right Arm] Sitting 02 Sat by Pulse Oximetry 100 100 100 Oxygen Delivery Method Room Air 02/24/25 23:01 02/24/25 23:17 02/24/25 23:30 Temperature Temperature Source Pulse Rate 66 65 62 Pulse Rate [Apical] Respiratory Rate 28 H 21 32 H Blood Pressure 114/69 108/66 L 118/73 Blood Pressure [Right Arm] Blood Pressure Mean [Right Arm] Blood Pressure Source [Right Arm] Blood Pressure Position [Right Arm] 02 Sat by Pulse Oximetry 96 100 100 Oxygen Delivery Method 02/25/25 00:00 Temperature Temperature Source Pulse Rate 77 Pulse Rate [Apical] Respiratory Rate 36 H Blood Pressure 110/71 Blood Pressure [Right Arm] Blood Pressure Mean [Right Arm] Blood Pressure Source [Right Arm] Blood Pressure Position [Right Arm] 02 Sat by Pulse Oximetry 100 Oxygen Delivery Method Lab Data Lab Results 02/24/25 21:38: WBC 9.4, RBC 5.14, Hgb 15.1, Hct 43.8, MCV 85.2, MCH 29.4, MCHC 34.5, RDW 12.1, Plt Count 310, MPV 10.1, Neut % (Auto) 84.8 H, Lymph % (Auto) 10.9, [place] % (Auto) 3.6, Eos % (Auto) 0.1, Baso % (Auto) 0.4, Neut # (Auto) 8.0 H, Lymph # (Auto) 1.0, [place] # (Auto) 0.3, Eos # (Auto) 0.0, Baso # (Auto) 0.0, Sodium 136, Potassium 5.2 H, Chloride 105, Carbon Dioxide 23, Anion Gap 13.2, BUN 13, Creatinine 0.70, Estimated Creat Clear 153, Estimated GFR 99, Est GFR ( Amer) 120, Glucose 124 H, Calcium 11.4 H, Magnesium 2.0, Total Bilirubin 1.2, AST 37 H, ALT 30, Alkaline Phosphatase 84, Total Protein 8.5 H, Albumin 5.0, Globulin 3.5 H, Albumin/Globulin Ratio 1.4, Lipase 145, Procalcitonin < 0.030, HCV Ab LUZ MARIA w/Rflx PCR Qn Negative, HIV Ag/Ab Combo Qual Negative 02/24/25 21:49: VBG pH 7.47 H, VBG pCO2 28.8 L, VBG pO2 20.8 L, VBG HCO3 20.4 L, VBG Total CO2 21.3 L, VBG O2 Saturation 41.2 L, VBG Base Excess -3.3 L, VBG Lactic Acid 5.5 H 02/24/25 23:14: Urine Color Yellow, Urine Appearance Clear, Urine pH 7.5, Ur Specific [place] 1.010, Urine Protein Negative, Urine Glucose (UA) Negative, Urine Ketones 3+, Urine Blood Negative, Urine Nitrate Negative, Urine Bilirubin Negative, Urine Urobilinogen 0.2, Ur Leukocyte Esterase Negative, Urine RBC 3-5, Urine WBC 5-10, Ur Squamous Epith Cells 10-20, Urine Bacteria 3+, Urine Mucus 2+, Urine HCG, Qual Negative 02/24/25 23:28: Potassium 3.3 L D 02/24/25 23:29: VBG pH 7.55 H, VBG pCO2 20.9 L, VBG pO2 53.1 H, VBG HCO3 17.8 L, VBG Total CO2 18.4 L, VBG O2 Saturation 91.8 H, VBG Base Excess -4.7 L, VBG Lactic Acid 3.7 H Orders (Tests/Meds): ED MEDICATIONS Generic Name Dose Route Start Last Admin Trade Name Freq PRN Reason Stop Dose Admin Metoclopramide HCl 10 mg 02/25/25 00:00 02/25/25 00:05 Metoclopramide 10mg Tablet PO 02/25/25 00:01 10 mg ONCE ONE Administration Sodium Chloride 10 ml 02/24/25 22:13 02/24/25 22:14 Sodium Chloride 0.9% 10ml Syr (Rad Only) IV 03/26/25 22:12 10 ml NEEDED PRN Administration Maintain IV Site Discontinued Medications Generic Name Dose Route Start Last Admin Trade Name Freq PRN Reason Stop Dose Admin Acetaminophen 1,000 mg 02/24/25 21:36 02/24/25 22:01 Acetaminophen 1,000mg/100ml Vial IV 02/24/25 21:37 1,000 mg ONCE ONE Administration Belladonna Alkaloids 60 ml 02/24/25 22:58 02/24/25 23:03 Belladonna Alkaloids 60 Ml Ml PO 02/24/25 22:59 60 ml ONCE ONE Administration Lactated Ringer's 1,000 mls @ 999 mls/hr 02/24/25 21:36 02/24/25 22:00 Lactated Ringer's 1000 Ml Bag IV 02/24/25 22:36 999 mls/hr .Q1H1M ONE Administration Magnesium Sulfate 2 gm in 50 mls @ 50 mls/hr 02/24/25 21:39 02/24/25 22:00 Magnesium Sulfate 2gm/50ml Premix IV 02/24/25 22:38 50 mls/hr ONCE ONE Administration Iopamidol 75 ml 02/24/25 22:13 02/24/25 22:14 Iopamidol-370 (76%);100ml Bottle IV 02/24/25 22:14 75 ml ONCE ONE Administration Ketorolac Tromethamine 15 mg 02/24/25 21:36 02/24/25 22:00 Ketorolac 30mg/Ml Vial IV 02/24/25 21:37 15 mg ONCE ONE Administration Ondansetron HCl 4 mg 02/24/25 21:36 02/24/25 22:00 Ondansetron 4mg/2ml Vial IV 02/24/25 21:37 4 mg ONCE ONE Administration Promethazine HCl 25 mg 02/24/25 22:58 02/24/25 23:03 Promethazine 25mg Tablet PO 02/24/25 22:59 25 mg ONCE ONE Administration ORDERS Category Date Time Status CT abdomen pelvis w con Stat Cat Scan 02/24/25 21:36 Completed CBC w/Auto Diff [Complete Blood Count Auto Diff] Stat Lab 02/24/25 21:38 Completed CMP [Comprehensive Metabolic Panel] Stat Lab 02/24/25 21:38 Completed HIV Combo Stat Lab 02/24/25 21:38 Completed Hepatitis C Ab Qual. W/ RFX Stat Lab 02/24/25 21:38 Completed Lipase Stat Lab 02/24/25 21:38 Completed Magnesium Stat Lab 02/24/25 21:38 Completed Potassium Stat Lab 02/24/25 23:28 Completed Procalcitonin Stat Lab 02/24/25 21:38 Completed UA [Urinalysis and Microscopic] Stat Lab 02/24/25 23:14 Completed Urine , HCG Qual. Stat Lab 02/24/25 23:14 Completed Urine Culture Stat Micro 02/24/25 23:14 Received VBG [Venous Blood Gas] Stat RT 02/24/25 21:49 Completed VBG [Venous Blood Gas] Stat RT 02/24/25 23:29 Completed Medical Decision Narrative: In summary patient is a 9-year-old female who presents to the emergency department for evaluation of nausea vomiting abdominal pain paresthesias. Patient is normotensive on arrival with a blood pressure 132/87 heart rate is 95 with sinus rhythm on the bedside monitor patient is tachypneic with a rate of 38 satting at 100% room air upon arrival, afebrile at 98.5. Physical exam is remarkable for clear breath sounds although she is hyperventilating patient has no chest wall tenderness breath sounds are clear and equal bilaterally to the bases, abdomen is soft no tenderness on exam rebound or guarding or rigidity bowel sounds normal active.. Differential diagnosis includes hyperventilation syndrome versus electrolyte abnormality versus GLP-1 adverse reaction possibly pancreatitis versus side effect etc. Initial workup will be conducted with hematologic labs urinalysis urine CT scan abdomen pelvis. Initial interventions include crystalloid bolus Toradol Tylenol Zofran. Initial workup ordered and pending at the time of handoff to Dr. Sheehan at 2200 hrs. Ulises Sheehan MD MANUEL: I assumed care of this patient from the [facility]. Upon repeat evaluation patient still in tolerating p.o. intake. CT imaging with no surgical pathology. Additional antiemetic ordered. Care was transferred to incoming physician. Real: Upon my assumption of care patient is stable but still having nausea. She had just received additional antiemetics and GI cocktail. I agree with the assessment and plan from Dr. Sheehan. I ordered repeat labs to reassess her VBG and potassium level. Potassium has improved, I suspect the elevated level on initial chemistry may have been secondary to hemolysis since there was such a dramatic change without intervention in the ER. Additionally, VBG shows worsening alkalosis but patient appears to have worsened her respiratory alkalosis likely secondary to hyperventilation with discomfort and emesis. CT abdomen pelvis radiology read was reviewed demonstrating possible viral enteritis, but no acute surgical pathology. On further reassessment, patient has had additional emesis and now is receiving metoclopramide. Since she has failed multiple antiemetics and is hyperventilated into a worsening alkalosis and has electrolyte derangements, I believe she requires admission to the hospital for continued symptomatic management and treatment of her other ongoing problems. Patient is agreeable to this plan. I discussed this case with the hospitalist including lab findings and changes. He accepted this patient, patient was admitted in stable condition. Critical Care <AYAD Beauchamp - Last Filed: 02/24/25 22:15> Critical Care Time Critical Care Time: No
--- NOTE | 2025-02-24 21:41 | ECG_ITS ---
APPROVED REPORT Exam: Resting ECG HR:75 bpm ECG Measurements Heart Rate 75 AXES MS 120 P 61 QRSd 85 QRS 91 QT 403 T 74 QTc 432 Conclusion SINUS RHYTHM WITH MARKED SINUS ARRHYTHMIA BORDERLINE RIGHT AXIS DEVIATION [QRS AXIS > 90] BORDERLINE ECG Electronically signed by : CARLOZ RAYMUNDO, 02/24/2025 23:28:08
[2025-02-24 21:46] VITALS: BP 132/87; PULSE 95; RESP 38; TEMP 36.9; O2SAT 100; BMI 27.3
[2025-02-24 21:46] LABS: Basophils % 0.4 % (0.1-2.0); Eosinophils % 0.1 % (0.1-12.0); Hematocrit 43.8 % (37.0-47.0); Hemoglobin 15.1 g/dL (12.2-16.2); Immature Granulocytes # 0.02 10^3uL; Immature Granulocytes % 0.2 %; Lymphocytes % 10.9 % (10-50); Mean Corpuscular HGB Conc 34.5 g/dL (31.8-35.4); Mean Corpuscular Hemoglobin 29.4 pg (27.0-31.2); Mean Corpuscular Volume 85.2 fl (81-99); Mean Platelet Volume 10.1 fl (7.4-10.4); Monocytes # 0.3 K/mm3 (0.1-1.0); Monocytes % 3.6 % (1.7-9.3); Neutrophils % 84.8 % (37.0-80.0); Nucleated Red Blood Cells # 0 10^3/uL; Nucleated Red Blood Cells % 0 %; Platelet Count 310 K/mm3 (142-424); Red Blood Count 5.14 M/mm3 (4.20-5.40); Red Cell Distribution Width 12.1 % (11.5-17.5); Red Cell Distribution Width-SD 37.4 fL; White Blood Count 9.4 K/mm3 (4.8-10.8)
[2025-02-24 21:50] LABS: VBG Base Excess -3.3 mmol/L (-2.4-2.3); VBG HCO3 20.4 mmol/L (23-30); VBG Oxygen Saturation 41.2 % (50-70); VBG PCO2 28.8 mmol/L (35-51); VBG PH 7.47 mmol/L (7.31-7.41); VBG PO2 20.8 mmol/L (28-40); VBG Total CO2 21.3 mmol/L (23-27)
[2025-02-24 21:52] LABS: Lactate Venous 5.5 mmol/L (0.4-2.0)
--- NOTE | 2025-02-24 21:53 | PC.NURSE ---
VBG PH 7.47, C02 28.8, Bicarb 20.4, Lact. 5.5 Don notified.
[2025-02-24 21:58] LABS: Alanine Aminotransferase 30 U/L (12-78); Albumin/Globulin Ratio 1.4 (1.1-1.8); Alkaline Phosphatase 84 U/L (38-126); Anion Gap 13.2 mEq/L (5-15); Aspartate Amino Transferase 37 U/L (14-36); Bilirubin,Total 1.2 mg/dl (0.2-1.3); Blood Urea Nitrogen 13 mg/dl (7-17); Calcium 11.4 mg/dl (8.4-10.2); Carbon Dioxide 23 mmol/L (22.0-30.0); Chloride 105 mmol/L (98-107); Creatinine Clearance Estimated 153 mL/min (50-200); Estimated Glomerular Filt Rate 99 ml/min (>60); GFR (African American) 120 ML/MIN (>60); Globulin 3.5 g/dL (1.3-3.2); Glucose 124 mg/dl (74-100); Lipase 145 U/L (23-300); Potassium 5.2 mmoL/L (3.5-5.1); Sodium 136 mmol/L (136-145); Total Protein,Serum 8.5 g/dl (6.3-8.2)
[2025-02-24] MEDS: MAGNESIUM SULFATE IN WATER 2 GM/50 ML PIGGYBACK IV (22:00)
[2025-02-24] MEDS: KETOROLAC 30MG/ML VIAL 15 MG IV (22:00)
[2025-02-24] MEDS: LACTATED RINGERS 1000ML 1,000 ML 999 ML IV (22:00)
[2025-02-24] MEDS: ONDANSETRON 4MG/2ML VIAL 4 MG IV (22:00)
[2025-02-24 22:01] VITALS: BP 126/72; PULSE 58; RESP 30; O2SAT 100
[2025-02-24] MEDS: ACETAMINOPHEN 1,000MG/100ML VIAL 1000 MG IV (22:01)
[2025-02-24] MEDS: SODIUM CHLORIDE 0.9% 10ML SYR (RAD ONLY) 10 ML IV (22:14)
[2025-02-24] MEDS: IOPAMIDOL-370 (76%);100ML BOTTLE 75 ML IV (22:14)
[2025-02-24 22:20] LABS: Procalcitonin < 0.030 ng/mL (0.0-2.0)
[2025-02-24 22:31] VITALS: BP 110/65; PULSE 50; RESP 13; O2SAT 100
[2025-02-24 22:46] LABS: HIV Combo NEGATIVE (Negative)
[2025-02-24 22:54] LABS: Hepatitis C Ab Qual. W/ RFX NEGATIVE (Negative)
[2025-02-24 23:01] VITALS: BP 114/69; PULSE 66; RESP 28; O2SAT 96
[2025-02-24] MEDS: PROMETHAZINE 25MG TABLET 25 MG PO (23:03)
[2025-02-24] MEDS: BELLADONNA ALKALOIDS 60 ML ML PO (23:03)
[2025-02-24 23:17] VITALS: BP 108/66; PULSE 65; RESP 21; O2SAT 100
[2025-02-24 23:18] LABS: Microscopic, Urine URINE MICROSCOPIC (MICROSCOPIC)
[2025-02-24 23:22] LABS: Appearance,Urine CLEAR (Clear); Bilirubin,Urine Negative (Negative); Blood, Urine Negative (Negative); Color,Urine YELLOW (Yellow); Glucose,Urine (UA) Negative (Negative); Ketones,Urine 3+ (Negative); Leukocyte Esterase,Urine Negative (Negative); Nitrate,Urine Negative (Negative); PH,Urine 7.5 (5.0-8.5); Protein,Urine Negative (Negative); Urobilinogen,Urine 0.2 EU/dl (0.2)
[2025-02-24 23:23] LABS: Urine Pregnancy, HCG Qual. Negative (Negative)
--- NOTE | 2025-02-24 23:26 | PC.NURSE ---
Pt assisted to bsc. medicated per NOV. warm blankets provided. call light in reach
[2025-02-24 23:30] VITALS: BP 118/73; PULSE 62; RESP 32; O2SAT 100
[2025-02-24 23:36] LABS: VBG Base Excess -4.7 mmol/L (-2.4-2.3); VBG HCO3 17.8 mmol/L (23-30); VBG Oxygen Saturation 91.8 % (50-70); VBG PO2 53.1 mmol/L (28-40); VBG Total CO2 18.4 mmol/L (23-27)
[2025-02-24 23:38] LABS: Bacteria,Urine 3+ /lpf; Mucus,Urine 2+ /lpf
[2025-02-24 23:38] LABS: Lactate Venous 3.7 mmol/L (0.4-2.0); VBG PCO2 20.9 mmol/L (35-51); VBG PH 7.55 mmol/L (7.31-7.41)
--- NOTE | 2025-02-24 23:39 | PC.NURSE ---
RT Tamiko called repeat VBG results. notified
[2025-02-24 23:40] LABS: Potassium 3.3 mmoL/L (3.5-5.1)
[2025-02-25] VITALS (8 sets, daily range): BP systolic 110–127; BP diastolic 59–78; PULSE 57–85; RESP 15–36; TEMP 36.7–37.6; O2SAT 97–100; BMI 26.6
[2025-02-25] MEDS: METOCLOPRAMIDE 10MG TABLET 10 MG PO (00:05)
--- NOTE | 2025-02-25 00:28 | PC.NURSE ---
report called to Marco ROMERO
[2025-02-25] MEDS: PROMETHAZINE HCL 25MG/ML 1ML VIAL 25 MG IV ×4 (01:25→23:51)
[2025-02-25] MEDS: 0.9 % SODIUM CHLORIDE 1000ML 1,000 ML 50 ML IV (01:25)
[2025-02-25] MEDS: SODIUM CHLORIDE 0.9% 25ML BAG 25 ML IV ×4 (01:25→23:51)
[2025-02-25 01:51] LABS: Reflex Lactic Add Lactic Reflex
[2025-02-25 02:53] LABS: Lactic Acid Follow Up (RFLX 1) 2.4 mmol/L (0.7-2.1)
[2025-02-25] MEDS: ONDANSETRON 4MG/2ML VIAL 4 MG IV (03:31)
[2025-02-25 04:17] LABS: Reflex Lactic (2 hrs) Add Lactic Reflex
--- NOTE | 2025-02-25 05:48 | P.HP_ITS ---
History of Present Illness *Admission Date: 02/25/25 *Reason for visit:: Nausea vomiting *History of present illness: Patient is a 29-year-old female who presents to the hospital due to recurrent nausea vomiting for the past few days according to patient it has not been improving, patient also mentions abdominal discomfort. Otherwise denied chest pain shortness of breath diarrhea constipation dysuria fevers and chills. Patient has been utilizing GLP-1 analog for weight loss. [facility] Disclaimer: The information contained in this section may have been updated after the patient was seen, as this information can be updated by other users. 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 LGSIL on Pap smear of cervix PVCs (premature ventricular contractions) History of depression Surgical History History of salpingectomy History of vaginal hysterectomy H/O colposcopy with cervical biopsy History of D&C [place] teeth removed H/O tubal ligation Status post tubal ligation Family History Grandmother PCOS (polycystic ovarian syndrome) Other Cancer Social History Smoking Status: Never smoker alcohol intake: never substance use type: denies use current occupational status: employed (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.) Travel in the last 8 weeks?: None household members: significant other housing: house number of children: 4 caffeine: No Have you lived/traveled outside [place] in past 30 days?: No Contact w/someone who lives/traveled outside US past 30 days?: No Exposure to someone with infectious disease in past 14 days?: No Do you have a fever (greater than 100.4 F or 38 C)?: No Have you tested positive for COVID-19?: No Exposed to someone with COVID-19 in past 14 days?: No Do you have a sore throat?: No Do you have a cough?: No Do you have any weakness?: No Do you have any diarrhea?: No Are you experiencing any unusual bleeding?: No Do you have any muscle aches/pain?: No Do you have any abdominal pain?: No Are you experiencing loss of taste or smell?: No Other Medical History Have you received the Flu Vaccine for this season: Yes Have you received the Pneumonia Vaccine: Yes Review of Systems Review of Systems Review of systems:: pertinent systems reviewed and negative unless documented below Meds Home Medications and Allergies Home Medications ?Medication ?Instructions ?Recorded ?Confirmed ?Type cetirizine 10 mg tablet 10 mg PO DAILY PRN Allergies 12/07/23 02/25/25 History New Prescriptions to Start Prescriptions: Allergies Allergy/AdvReac Type Severity Reaction Status Date / Time No Known Allergies Allergy Verified 01/04/24 10:17 Exam Data for Last 24 hours Vital signs and Labs for Last 24 Hours: Temp Pulse Resp BP Pulse Ox O2 Del Method 99.1 F 73 18 112/59 L 97 Room Air 02/25/25 04:00 02/25/25 04:00 02/25/25 04:00 02/25/25 04:00 02/25/25 04:00 02/25/25 04:00 Laboratory Results - last 24 hr 02/24/25 21:38: WBC 9.4, RBC 5.14, Hgb 15.1, Hct 43.8, MCV 85.2, MCH 29.4, MCHC 34.5, RDW 12.1, Plt Count 310, MPV 10.1, Neut % (Auto) 84.8 H, Lymph % (Auto) 10.9, [place] % (Auto) 3.6, Eos % (Auto) 0.1, Baso % (Auto) 0.4, Neut # (Auto) 8.0 H, Lymph # (Auto) 1.0, [place] # (Auto) 0.3, Eos # (Auto) 0.0, Baso # (Auto) 0.0, Sodium 136, Potassium 5.2 H, Chloride 105, Carbon Dioxide 23, Anion Gap 13.2, BUN 13, Creatinine 0.70, Estimated Creat Clear 153, Estimated GFR 99, Est GFR ( Amer) 120, Glucose 124 H, Calcium 11.4 H, Magnesium 2.0, Total Bilirubin 1.2, AST 37 H, ALT 30, Alkaline Phosphatase 84, Total Protein 8.5 H, Albumin 5.0, Globulin 3.5 H, Albumin/Globulin Ratio 1.4, Lipase 145, Procalcitonin < 0.030, HCV Ab LUZ MARIA w/Rflx PCR Qn Negative, HIV Ag/Ab Combo Qual Negative 02/24/25 21:49: VBG pH 7.47 H, VBG pCO2 28.8 L, VBG pO2 20.8 L, VBG HCO3 20.4 L, VBG Total CO2 21.3 L, VBG O2 Saturation 41.2 L, VBG Base Excess -3.3 L, VBG Lactic Acid 5.5 H 02/24/25 23:14: Urine Color Yellow, Urine Appearance Clear, Urine pH 7.5, Ur Specific [place] 1.010, Urine Protein Negative, Urine Glucose (UA) Negative, Urine Ketones 3+, Urine Blood Negative, Urine Nitrate Negative, Urine Bilirubin Negative, Urine Urobilinogen 0.2, Ur Leukocyte Esterase Negative, Urine RBC 3-5, Urine WBC 5-10, Ur Squamous Epith Cells 10-20, Urine Bacteria 3+, Urine Mucus 2+, Urine HCG, Qual Negative 02/24/25 23:28: Potassium 3.3 L D 02/24/25 23:29: VBG pH 7.55 H, VBG pCO2 20.9 L, VBG pO2 53.1 H, VBG HCO3 17.8 L, VBG Total CO2 18.4 L, VBG O2 Saturation 91.8 H, VBG Base Excess -4.7 L, VBG Lactic Acid 3.7 H 02/25/25 02:15: Lactate 2.4 H I & O for Last 24 hours: Intake & Output 02/22/25 02/23/25 02/24/25 02/25/25 23:59 23:59 23:59 23:59 Weight 81.647 kg 79.379 kg Constitutional Constitutional: no acute distress *Routine HEENT Exam Head: Present normocephalic Eye: Present EOMI and PERRL ENT: Present mucous membranes moist *Routine Neck Exam Neck: Present supple; Absent lymphadenopathy *Routine Respiratory Exam Respiratory: Present CTA bilaterally *Routine Cardiovascular Exam Cardiovascular: Present RRR *Routine Abdominal Exam Abdominal: Present soft and normoactive bowel sounds; Absent tenderness *Routine Rectal Exam Rectal:: deferred *Routine Genitalia Exam Genitalia:: deferred *Routine Extremities Exam Extremities: Absent cyanosis, clubbing or edema *Routine Skin Exam Skin: Present warm; Absent rash *Routine Neurological Exam Neurological: Present alert and oriented X3 Assessment and Plan *Assessment and plan (1) Alkalosis: Status: Acute Category: Medical Code(s): E87.3 - Alkalosis (2) Nausea & vomiting: Status: Acute Category: Medical Code(s): R11.2 - Nausea with vomiting, unspecified Plan Patient is a 29-year-old female who presents to the hospital due to recurrent nausea vomiting for the past few days according to patient it has not been improving, patient also mentions abdominal discomfort. Otherwise denied chest pain shortness of breath diarrhea constipation dysuria fevers and chills. Patient has been utilizing GLP-1 analog for weight loss. Assessment and plan Intractable nausea vomiting likely secondary to GLP-1 analog side effect versus viral gastroenteritis Metabolic alkalosis Hypokalemia Lactic acidosis Started on IV normal saline As needed Zofran, Phenergan Monitor BMP Monitor and replace electrolytes Monitor lactic acid UA checked-negative Urine drug screen checked-negative CT abdomen pelvis performed which was negative for acute obstruction, did show nonobstructive fluid-filled mucosal thickening suggestive of possible viral gastroenteritis Chronic medical conditions PTSD Generalized anxiety disorder Resume home meds after confirmed DVT PPx -SC heparin
[2025-02-25 05:55] LABS: Basophils % 0.1 % (0.1-2.0); Eosinophils % 0.1 % (0.1-12.0); Hematocrit 40.6 % (37.0-47.0); Hemoglobin 13.8 g/dL (12.2-16.2); Immature Granulocytes # 0.01 10^3uL; Immature Granulocytes % 0.1 %; Lymphocytes # 0.4 K/mm3 (0.7-4.5); Mean Corpuscular Hemoglobin 29.1 pg (27.0-31.2); Mean Corpuscular Volume 85.7 fl (81-99); Mean Platelet Volume 10.2 fl (7.4-10.4); Monocytes # 0.2 K/mm3 (0.1-1.0); Monocytes % 2.3 % (1.7-9.3); Neutrophils % 92.4 % (37.0-80.0); Nucleated Red Blood Cells # 0 10^3/uL; Nucleated Red Blood Cells % 0 %; Platelet Count 249 K/mm3 (142-424); Red Blood Count 4.74 M/mm3 (4.20-5.40); Red Cell Distribution Width 12.1 % (11.5-17.5); White Blood Count 8.7 K/mm3 (4.8-10.8)
[2025-02-25 06:08] LABS: Chloride 106 mmol/L (98-107)
[2025-02-25 06:09] LABS: MANUAL DIFFERENTIAL MANUAL DIFFERENTIAL (MANUAL DIFF); Sodium 135 mmol/L (136-145)
[2025-02-25 06:11] LABS: Blood Urea Nitrogen 13 mg/dl (7-17); Creatinine Clearance Estimated 173 mL/min (50-200); Estimated Glomerular Filt Rate 118 ml/min (>60); GFR (African American) 143 ML/MIN (>60)
[2025-02-25 06:12] LABS: Calcium 8.9 mg/dl (8.4-10.2); Carbon Dioxide 21 mmol/L (22.0-30.0); Glucose 110 mg/dl (74-100); Lactic Acid Follow up (RFLX 2) 1.5 mmol/L (0.7-2.1)
[2025-02-25 08:32] LABS: Lymphocytes % 3 % (10-50); Neutrophils % 97 % (42-76); Platelet Estimate Normal; RBC Morphology Normal; Total Cells Counted 100
[2025-02-25] MEDS: HEPARIN SODIUM 5,000 UNIT/ML VIAL 5000 UNIT SUBCUT ×3 (10:02→21:18)
--- NOTE | 2025-02-25 10:16 | HMH.PHAINT1 ---
Pharmacy Intervention Comments: MEDICATION RECONCILIATION COMPLETED ON PATIENT USING EXTERNAL FILL HISTORY FROM PHARMACY AND PATIENT INTERVIEW. -JAYCE SANTIAGO, JOHND
[2025-02-25] MEDS: DICYCLOMINE 10MG CAPSULE 40 MG PO ×3 (14:26→21:18)
--- NOTE | 2025-02-25 15:20 | PC.NURSE ---
pt is A&Ox4. Pt came to ED for excessive vomiting. Has only had one episode today on this shift. Was given phenergan. Pt has been resting most of the day. she does have family at bedside. we will continue to monitor and administer antiemetics and fluids as needed. she did have a popsicle and a starry to drink and has tolerated it thus far.
[2025-02-25] MEDS: 0.9 % SODIUM CHLORIDE 1000ML 1,000 ML 125 ML IV (21:13)
[2025-02-26] MEDS: 0.9 % SODIUM CHLORIDE 1000ML 1,000 ML 125 ML IV ×2 (00:16→08:03)
[2025-02-26] MEDS: ONDANSETRON 4MG/2ML VIAL 4 MG IV ×2 (02:06→16:00)
[2025-02-26 04:00] VITALS: BP 116/59; PULSE 83; RESP 16; TEMP 37.1; O2SAT 97; BMI 26.6
[2025-02-26 06:27] LABS: Basophils % 0.3 % (0.1-2.0); Eosinophils % 0.2 % (0.1-12.0); Hemoglobin 13.6 g/dL (12.2-16.2); Immature Granulocytes # 0.01 10^3uL; Immature Granulocytes % 0.2 %; Lymphocytes % 14.8 % (10-50); Mean Corpuscular HGB Conc 33.2 g/dL (31.8-35.4); Mean Corpuscular Hemoglobin 28.9 pg (27.0-31.2); Mean Platelet Volume 9.9 fl (7.4-10.4); Monocytes # 0.3 K/mm3 (0.1-1.0); Monocytes % 5.1 % (1.7-9.3); Neutrophils # 5.2 K/mm3 (1.8-7.8); Neutrophils % 79.4 % (37.0-80.0); Nucleated Red Blood Cells # 0 10^3/uL; Nucleated Red Blood Cells % 0 %; Platelet Count 234 K/mm3 (142-424); Red Blood Count 4.71 M/mm3 (4.20-5.40); Red Cell Distribution Width 12.4 % (11.5-17.5); Red Cell Distribution Width-SD 39.4 fL; White Blood Count 6.5 K/mm3 (4.8-10.8)
[2025-02-26 06:53] LABS: Albumin Level 3.9 g/dl (3.5-5.0); Chloride 109 mmol/L (98-107); Potassium 3.8 mmoL/L (3.5-5.1); Sodium 136 mmol/L (136-145)
--- NOTE | 2025-02-26 06:54 | PC.NURSE ---
Pt. is alert and orientated x 4. Pt. is on room air. Pt. c/o nausea but no vomiting overnight. Pt. was medicated with Phenrgan IV and Zofran IV for the nausea. Pt. states that she felt a lot better after the meds. Pt. slept off and on overnight. IVF infusing. Pt. up to BR and ambulates with a steady gait. Personal items and call demarco in reach. Safety measures in place.
[2025-02-26 06:55] LABS: Alanine Aminotransferase 18 U/L (12-78); Alkaline Phosphatase 69 U/L (38-126); Aspartate Amino Transferase 32 U/L (14-36); Bilirubin,Total 0.5 mg/dl (0.2-1.3); Blood Urea Nitrogen 10 mg/dl (7-17); Creatinine Clearance Estimated 150 mL/min (50-200); Estimated Glomerular Filt Rate 99 ml/min (>60); GFR (African American) 120 ML/MIN (>60)
[2025-02-26 06:56] LABS: Albumin/Globulin Ratio 1.4 (1.1-1.8); Anion Gap 7.8 mEq/L (5-15); Calcium 8.4 mg/dl (8.4-10.2); Carbon Dioxide 23 mmol/L (22.0-30.0); Globulin 2.7 g/dL (1.3-3.2); Glucose 97 mg/dl (74-100); Magnesium 2.1 mg/dl (1.6-2.3); Total Protein,Serum 6.6 g/dl (6.3-8.2)
[2025-02-26 08:00] VITALS: BP 118/78; PULSE 66; RESP 18; TEMP 36.8; O2SAT 100
[2025-02-26] MEDS: HEPARIN SODIUM 5,000 UNIT/ML VIAL 5000 UNIT SUBCUT ×2 (08:03→12:24)
[2025-02-26] MEDS: DICYCLOMINE 10MG CAPSULE 40 MG PO ×2 (08:03→12:24)
[2025-02-26] MEDS: SODIUM CHLORIDE 0.9% 25ML BAG 25 ML IV (10:20)
[2025-02-26] MEDS: PROMETHAZINE HCL 25MG/ML 1ML VIAL 25 MG IV (10:20)
--- NOTE | 2025-02-26 11:51 | XR_ITS ---
PROCEDURE INFORMATION: Exam: XR Abdomen Exam date and time: 02/26/2025 11:57 AM Age: 29 years old Clinical indication: Nausea and vomiting and other: No bm; Additional info: N/v, abdominal pain, no flutus/bm TECHNIQUE: Imaging protocol: Radiologic exam of the abdomen. Views: Frontal supine view of the abdomen. 1 View. COMPARISON: CT ABDOMEN PELVIS W CON 24/02/2025 22:11 FINDINGS: Tubes, catheters and devices: Tubal ligation clips. Gastrointestinal tract: Normal. No bowel dilation. Bones/joints: Unremarkable. IMPRESSION: No acute findings.
--- NOTE | 2025-02-26 14:58 | EXP.DC.SUM ---
General Admission date:: 02/25/25 HPI HPI HPI: Patient is a 29-year-old female who presents to the hospital due to recurrent nausea vomiting for the past few days according to patient it has not been improving, patient also mentions abdominal discomfort. Otherwise denied chest pain shortness of breath diarrhea constipation dysuria fevers and chills. Patient has been utilizing GLP-1 analog for weight loss. Hospital Course Hospital Course Hospital Course: Mikaela Xiao is a 29 year old female who presented with nausea/vomiting and abdominal cramping after recently restarting compounded semaglutide and was admitted for the same. #Nausea/vomiting #Abdominal cramping #Medication side effect - Recently restarted taking compounded semaglutide after a 6 month break. States she is on the lowest dose, but question the compound concentration. - Clinically improved with zofran and dicyclomine. Vomiting resolved, but continues to have intermittent nausea. - Discharged with zofran, advised to discontinue semaglutide and follow-up with PCP within 1 week. Exam Data for Last 24 hours Vital signs and Labs for Last 24 Hours: Temp Pulse Resp BP Pulse Ox O2 Del Method 98.2 F 66 18 118/78 100 Room Air 02/26/25 08:00 02/26/25 08:00 02/26/25 08:00 02/26/25 08:00 02/26/25 08:00 02/26/25 13:00 Laboratory Results - last 24 hr 02/26/25 06:20: WBC 6.5 D, RBC 4.71, Hgb 13.6, Hct 41.0, MCV 87.0, MCH 28.9, MCHC 33.2, RDW 12.4, Plt Count 234, MPV 9.9, Neut % (Auto) 79.4, Lymph % (Auto) 14.8, [place] % (Auto) 5.1, Eos % (Auto) 0.2, Baso % (Auto) 0.3, Neut # (Auto) 5.2, Lymph # (Auto) 1.0, [place] # (Auto) 0.3, Eos # (Auto) 0.0, Baso # (Auto) 0.0, Sodium 136, Potassium 3.8, Chloride 109 H, Carbon Dioxide 23, Anion Gap 7.8, BUN 10, Creatinine 0.70, Estimated Creat Clear 150, Estimated GFR 99, Est GFR ( Amer) 120, Glucose 97, Calcium 8.4, Magnesium 2.1, Total Bilirubin 0.5, AST 32, ALT 18 D, Alkaline Phosphatase 69, Total Protein 6.6, Albumin 3.9 D, Globulin 2.7, Albumin/Globulin Ratio 1.4 I & O for Last 24 hours: Intake & Output 02/23/25 02/24/25 02/25/25 02/26/25 23:59 23:59 23:59 23:59 Intake Total 1195 / 1195 240 / 240 Output Total 1550 / 1550 0 / 0 Balance -355 / -355 240 / 240 Weight 81.647 kg 79.379 kg 79.889 kg Microbiology Reports for the Last 24 Hours: Microbiology 02/24/25 23:14 Urine,Clean Catch Urine Culture - Final Multiple organisms, suggests contamination. Constitutional Constitutional: no acute distress *Routine HEENT Exam Head: Present normocephalic Eye: Present EOMI and PERRL ENT: Present mucous membranes moist *Routine Neck Exam Neck: Present supple; Absent lymphadenopathy *Routine Respiratory Exam Respiratory: Present CTA bilaterally *Routine Cardiovascular Exam Cardiovascular: Present RRR *Routine Abdominal Exam Abdominal: Present soft and normoactive bowel sounds; Absent tenderness *Routine Extremities Exam Extremities: Absent cyanosis, clubbing or edema *Routine Skin Exam Skin: Present warm; Absent rash *Routine Neurological Exam Neurological: Present alert and oriented X3 Results Data Completed and Pending Labs on day of discharge: Labs from last 24 hours 02/26/25 06:20 WBC 6.5 D RBC 4.71 Hgb 13.6 Hct 41.0 MCV 87.0 MCH 28.9 MCHC 33.2 RDW 12.4 Plt Count 234 MPV 9.9 Neut % (Auto) 79.4 Lymph % (Auto) 14.8 [place] % (Auto) 5.1 Eos % (Auto) 0.2 Baso % (Auto) 0.3 Neut # (Auto) 5.2 Lymph # (Auto) 1.0 [place] # (Auto) 0.3 Eos # (Auto) 0.0 Baso # (Auto) 0.0 Sodium 136 Potassium 3.8 Chloride 109 H Carbon Dioxide 23 Anion Gap 7.8 BUN 10 Creatinine 0.70 Estimated Creat Clear 150 Estimated GFR 99 Est GFR ( Amer) 120 Glucose 97 Calcium 8.4 Magnesium 2.1 Total Bilirubin 0.5 AST 32 ALT 18 D Alkaline Phosphatase 69 Total Protein 6.6 Albumin 3.9 D Globulin 2.7 Albumin/Globulin Ratio 1.4 DS: Diagnosis Discharge Diagnosis (1) Alkalosis: Status: Acute Code(s): E87.3 - Alkalosis (2) Nausea & vomiting: Status: Acute Code(s): R11.2 - Nausea with vomiting, unspecified Meds Home Medications and Allergies Home Medications ?Medication ?Instructions ?Recorded ?Confirmed ?Type ondansetron HCl 4 mg tablet 4 mg PO Q8H PRN nausea and 03/08/25 03/08/25 Rx vomiting 5 days #30 tabs New Prescriptions to Start Prescriptions: Allergies Allergy/AdvReac Type Severity Reaction Status Date / Time No Known Allergies Allergy Verified 03/08/25 09:47 Discharge Plan Disposition Patient Disposition: Home, Self-Care Condition: Fair Follow up Plan Follow up with: Shashi Mendoza APRN [Primary Care Provider, [facility]] - Enter time for follow up Referral Note: Please call office for follow up appointment Prescriptions/Medication Reconciliation: Discontinued semaglutide 0.5 mg/0.1 mL Syringe 2.5 mg SQ WEEKLY No Action ondansetron HCl 4 mg tablet 4 mg PO Q8H PRN (Reason: nausea and vomiting) 5 Days Qty: 30 0RF Problem Reconciliation Problems Reviewed?: Yes Patient Discharge Instructions Patient Instructions: DI for Nausea -- Adult, DI for Vomiting -- Adult Print Language: Arabic Providers Primary Care Provider: Shashi Mendoza Admit Provider: Tony Jeffery Attending Provider: Tony Jeffery
--- NOTE | 2025-02-28 11:30 | SW/DCPLANNER ---
Spoke with patient on the phone. Patient stated that she is still vomiting. Patient stated that she goes tomorrow for her follow up appointment. Patient stated that she was able to get her new medicine picked up from [facility]. Patient stated that she has no concerns or questions at this time. Sydnie Palma
== END 2025-02-26 16:10 | disposition home or self-care (01) ==
LOC: ER 02-25 00:03 → 2ND 02-25 03:00
PROVIDERS: Emergency Medicine; Internal Medicine; Physician Assistant; Admitting Provider Student in an Organized Health Care Education/Training Program; Emergency Provider Emergency Medicine; PCP Nurse Practitioner Family; Visit Provider Student in an Organized Health Care Education/Training Program
DX: R11.2 Nausea with vomiting, unspecified (principal); T50.995A Adverse effect of other drugs, medicaments and biological substances, initial encounter; E87.3 Alkalosis; E87.6 Hypokalemia; E87.20 Acidosis, unspecified; R10.9 Unspecified abdominal pain; F43.10 Post-traumatic stress disorder, unspecified; F41.1 Generalized anxiety disorder
CPT/HCPCS: 96361; 96365; 96375 ×2; 96376 ×2; 36415; 74018; 74177; 80048; 80053; 81001; 81025; 82803; 83605; 83690; 83735; 84132; 84145; 85007; 85025; 85027; 86803; 87086; 87389; 93005; G0378; J0131; J1644; J1885; J2405; J2550; J3475; J7030; J7120; Q9967